=== PATIENT | male | born 1950 | race Caucasian/White ===

== ENCOUNTER 2018-05-05 20:17 | Emergency (ER) | payer MEDICARE, OTHER ==
--- NOTE | 2018-05-05 20:45 | ERPHSYRPT ---
- History of Present Illness Time Seen by Provider: 05/05/18 20:40 Historian: patient Exam Limitations: no limitations ("box open dictation box) Patient Subjective Stated Complaint: Chest pain Triage Nursing Assessment: Patient ambulated back into ER and transferred self on bed. Patient A+O X 3. Patient was sitting down and started feeling short of breath and then started having chest discomfort around 1600. Patient hadn't ate anything at this time. Patient denies pain. Patient states his chest is tight and has pressure. no nitro or asa taken. Physician History: The patient is a 67-year-old male with his complaining of a sudden onset of left upper abdominal pain and left sided lower chest pain since 4:30 this afternoon or 4 hours ago. He was sitting up resting when he had this tightness in his chest and abdomen there was kind of generalized pain. He thought he was slightly short of breath. He denies nausea or sweating. He has had similar issues before that were resolved with a GI cocktail, although he says this is slightly different today. He had a cardiac catheterization 2-3 years ago that he states was normal. He denies fever or chills. He denies cough. His past medical history is significant for GERD and hypertension. He quit smoking 15 years ago. Timing/Duration: today, hour(s) (4), sudden, improved Activities at Onset: none Quality: tightness Location: substernal Chest Pain Radiation: neck, arm Severity of Pain-Max: moderate Severity of Pain-Current: mild Modifying Factors: Improves With: nothing Associated Symptoms: abdominal pain, shortness of breath, No nausea, No vomiting , No hurts to breathe Prior Chest Pain/Cardiac Workup: cardiac cath (clear) Nitro Today/Relief: 0.4 mg x 1, provided by ED Aspirin Treatment Today: 81 mg x 4, provided by ED Allergies/Adverse Reactions: codeine [Codeine] Allergy (Verified 05/05/18 20:40) Home Medications: Amlodipine Besylate 2.5 mg PO DAILY 01/07/16 [History] Clidinium/Chlordiazepoxide [Librax] 1 cap PO QID 01/07/16 [History] Nebivolol HCl [Bystolic] 10 mg PO HS 01/07/16 [History] Ranitidine HCl [Zantac 75] 75 mg PO DAILY 05/05/18 [History] Hx Tetanus, Diphtheria Vaccination/Date Given: Yes Hx Influenza Vaccination/Date Given: Yes Hx Pneumococcal Vaccination/Date Given: No Immunizations Up to Date: Yes - Review of Systems Constitutional: No Fever, No Chills Eyes: No Symptoms Ears, Nose, & Throat: No Symptoms Respiratory: Dyspnea Cardiac: Chest Pain Abdominal/Gastrointestinal: Abdominal Pain Genitourinary Symptoms: No Dysuria Musculoskeletal: No Back Pain, No Neck Pain Skin: No Rash Neurological: No Dizziness, No Focal Weakness, No Sensory Changes Psychological: No Symptoms Endocrine: No Symptoms Hematologic/Lymphatic: No Symptoms Immunological/Allergic: No Symptoms All Other Systems: Reviewed and Negative - Past Medical History Pertinent Past Medical History: Yes Cardiac History: Hypertension Respiratory History: COPD GI Medical History: GERD - Past Surgical History Past Surgical History: Yes Cardiac: Cardiac Catheterization Musculoskeletal: Orthopedic Surgery Other Surgical History: TOTAL KNEE,HERNIA REPAIR X 2, Knee clean out - Social History Smoking Status: Former smoker Exposure to second hand smoke: Yes Drug Use: none Patient Lives Alone: No - Nursing Vital Signs Nursing Vital Signs: Initial Vital Signs Temperature 98.4 F 05/05/18 20:18 Pulse Rate 69 05/05/18 20:18 Respiratory Rate 17 05/05/18 20:18 Blood Pressure 137/81 05/05/18 20:18 O2 Sat by Pulse Oximetry 97 05/05/18 20:18 Pain Scale Pain Intensity 0 - Physical Exam General Appearance: no apparent distress, alert Eye Exam: PERRL/EOMI, eyes nml inspection Ears, Nose, Throat Exam: normal ENT inspection, moist mucous membranes Neck Exam: normal inspection, non-tender, supple, full range of motion Respiratory Exam: normal breath sounds, lungs clear, No respiratory distress Cardiovascular Exam: regular rate/rhythm, normal heart sounds Gastrointestinal/Abdomen Exam: soft, No tenderness, No mass Rectal Exam: not done Back Exam: normal inspection, No CVA tenderness, No vertebral tenderness Extremity Exam: normal inspection, normal range of motion Neurologic Exam: alert, oriented x 3, cooperative, normal mood/affect, sensation nml, No motor deficits Skin Exam: normal color, warm, dry SpO2 Interpretation: normal SpO2: 97 Oxygen Delivery: Room Air - Course EKG Interpreted by Me: RATE, Sinus Rhythm, NORMAL AXIS, NORMAL INTERVALS, NORMAL QRS, NORMAL ST-T, Other (no change in EKG from 07/14/15.) - Radiology Exams Chest X-ray Interpretation: Interpreted by me, Negative Abdomen X-ray Interpretation: Interpreted by me, Negative, Other (fecal stasis) - CT Exams Chest CT Interpretation: Tele-radiologist Report (per Dr Hinds), No PE Abdomen/Pelvis CT Interpretation: Negative, Tele-radiologist Report (per Dr Hinds), Other ( diverticulosis) Ordered Tests: Active Orders 24 hr Category Date Time Status ACCUCHECK [Accucheck] STAT Care 05/05/18 20:49 Active Harnessmaker STAT Care 05/05/18 20:49 Active Clean Catch Urine Specimen STAT Care 05/05/18 20:50 Active EKG-ER Only STAT Care 05/05/18 20:49 Active IV Insertion STAT Care 05/05/18 20:49 Active Pulse Oximetry (ED) STAT Care 05/05/18 20:49 Active ABDOMEN 2 VIEW Stat Exams 05/05/18 20:50 Taken ABDOMEN AND PELVIS W CONTRAST [CT] Stat Exams 05/05/18 22:43 Taken CHEST 2 VIEWS (PA AND LAT) Stat Exams 05/05/18 22:00 Taken CHEST WITH CONTRAST [CT] Stat Exams 05/05/18 21:49 Taken CBC W DIFF Stat Lab 05/05/18 20:40 Completed CMP Stat Lab 05/05/18 20:40 Completed D-DIMER QUANTITATION Stat Lab 05/05/18 20:40 Completed LIPASE Stat Lab 05/05/18 20:40 Completed Lactic Acid Stat Lab 05/05/18 21:00 Completed NT PRO BNP Stat Lab 05/05/18 20:40 Completed TROPONIN Q3H Lab 05/05/18 20:40 Completed TROPONIN Q3H Lab 05/06/18 00:00 Ordered TROPONIN Q3H Lab 05/06/18 03:00 Ordered TROPONIN Q3H Lab 05/06/18 06:00 Ordered TROPONIN Q3H Lab 05/06/18 09:00 Ordered UA W/RFX UR CULTURE Stat Lab 05/05/18 21:00 Completed Medication Summary Discontinued Medications Generic Name Dose Route Start Last Admin Trade Name Freq PRN Reason Stop Dose Admin Al Hydrox/Mg Hydrox/Simethicone Confirm 05/05/18 21:04 Maalox Es 30 Ml Unit Dose Administered 05/05/18 21:05 Dose 30 ml .ROUTE .STK-MED ONE Aspirin 324 mg 05/05/18 20:49 05/05/18 21:12 Baby Aspirin 81 Mg Chew PO 05/05/18 20:50 324 mg STAT ONE Administration Aspirin Confirm 05/05/18 21:03 Baby Aspirin 81 Mg Chew Administered 05/05/18 21:04 Dose 324 mg .ROUTE .STK-MED ONE Lidocaine HCl Confirm 05/05/18 21:03 Xylocaine Hcl Viscous * Administered 05/05/18 21:04 Dose 15 ml .ROUTE .STK-MED ONE Magnesium Hydroxide 45 ml 05/05/18 20:50 05/05/18 21:13 Gi Cocktail 45 Ml (Maalox/Lidocaine) PO 05/05/18 20:51 45 ml STAT ONE Administration Nitroglycerin 0.4 mg 05/05/18 20:49 05/05/18 21:13 Nitrostat 0.4 Mg (Ed) SL 05/05/18 20:50 0.4 mg STAT ONE Administration Nitroglycerin Confirm 05/05/18 21:03 Nitrostat 0.4 Mg (Ed) Administered 05/05/18 21:04 Dose 0.4 mg SL .STK-MED ONE Ondansetron HCl 4 mg 05/05/18 20:49 05/05/18 21:12 Zofran 4 Mg/2 Ml Vial IV 05/05/18 20:50 4 mg STAT ONE Administration Ondansetron HCl Confirm 05/05/18 21:03 Zofran 4 Mg/2 Ml Vial Administered 05/05/18 21:04 Dose 4 mg .ROUTE .STK-MED ONE Lab/Rad Data: Laboratory Result Diagrams 05/05/18 20:40 05/05/18 20:40 Laboratory Results 05/05/18 05/05/18 05/05/18 Range/Units 21:00 21:00 20:40 WBC (4.0-10.5) K/mm3 RBC (4.1-5.6) M/mm3 Hgb (12.5-18.0) gm/dl Hct (42-50) % MCV (78-100) fl MCH (26-32) pg MCHC (32-36) g/dl RDW (11.5-14.0) % Plt Count (150-450) K/mm3 MPV (6-9.5) fl Gran % (36.0-66.0) % Eos # (Auto) (0-0.5) Absolute Lymphs (auto) (1.0-4.6) Absolute Monos (auto) (0.0-1.3) Lymphocytes % (24.0-44.0) % Monocytes % (0.0-12.0) % Eosinophils % (0.00-5.0) % Basophils % (0.0-0.4) % Absolute Granulocytes (1.4-6.9) Basophils # (0-0.4) D-Dimer (215-500) ng/mL Sodium (137-145) mmol/L Potassium (3.5-5.1) mmol/L Chloride (98-107) mmol/L Carbon Dioxide (22-30) mmol/L Anion Gap (5-15) MEQ/L BUN (9-20) mg/dL Creatinine (0.66-1.25) mg/dL Estimated GFR ML/MIN Glucose (74-106) mg/dL Lactic Acid 1.8 (0.4-2.0) Calcium (8.4-10.2) mg/dL Total Bilirubin (0.2-1.3) mg/dL AST (17-59) U/L ALT (0-50) U/L Alkaline Phosphatase (38-126) U/L Troponin I < 0.012 (0.000-0.034) ng/mL NT-Pro-B Natriuret Pep (0-900) pg/mL Serum Total Protein (6.3-8.2) g/dL Albumin (3.5-5.0) g/dL Lipase (23-300) U/L Urine Color STRAW (YELLOW) Urine Appearance CLEAR (CLEAR) Urine pH 8.0 (5-6) Ur Specific [place] 1.002 (1.005-1.025) Urine Protein NEGATIVE (Negative) Urine Ketones NEGATIVE (NEGATIVE) Urine Blood NEGATIVE (0-5) Crispin/ul Urine Nitrite NEGATIVE (NEGATIVE) Urine Bilirubin NEGATIVE (NEGATIVE) Urine Urobilinogen NEGATIVE (0-1) mg/dL Ur Leukocyte Esterase NEGATIVE (NEGATIVE) U Epithel Cells (Auto) NONE SEEN (FEW) /HPF Urine Mucus (Auto) SLIGHT (NEGATIVE) /HPF Urine Culture Reflexed NO (NO) Urine Glucose NEGATIVE (NEGATIVE) mg/dL 05/05/18 05/05/18 05/05/18 Range/Units 20:40 20:40 20:40 WBC (4.0-10.5) K/mm3 RBC (4.1-5.6) M/mm3 Hgb (12.5-18.0) gm/dl Hct (42-50) % MCV (78-100) fl MCH (26-32) pg MCHC (32-36) g/dl RDW (11.5-14.0) % Plt Count (150-450) K/mm3 MPV (6-9.5) fl Gran % (36.0-66.0) % Eos # (Auto) (0-0.5) Absolute Lymphs (auto) (1.0-4.6) Absolute Monos (auto) (0.0-1.3) Lymphocytes % (24.0-44.0) % Monocytes % (0.0-12.0) % Eosinophils % (0.00-5.0) % Basophils % (0.0-0.4) % Absolute Granulocytes (1.4-6.9) Basophils # (0-0.4) D-Dimer 684 H* (215-500) ng/mL Sodium 137 (137-145) mmol/L Potassium 4.3 (3.5-5.1) mmol/L Chloride 100 (98-107) mmol/L Carbon Dioxide 29 (22-30) mmol/L Anion Gap 11.9 (5-15) MEQ/L BUN 13 (9-20) mg/dL Creatinine 0.77 (0.66-1.25) mg/dL Estimated GFR > 60.0 ML/MIN Glucose 131 H (74-106) mg/dL Lactic Acid (0.4-2.0) Calcium 9.2 (8.4-10.2) mg/dL Total Bilirubin 1.00 (0.2-1.3) mg/dL AST 151 H (17-59) U/L ALT 133 H (0-50) U/L Alkaline Phosphatase 75 (38-126) U/L Troponin I (0.000-0.034) ng/mL NT-Pro-B Natriuret Pep 302 (0-900) pg/mL Serum Total Protein 7.7 (6.3-8.2) g/dL Albumin 4.4 (3.5-5.0) g/dL Lipase 129 (23-300) U/L Urine Color (YELLOW) Urine Appearance (CLEAR) Urine pH (5-6) Ur Specific [place] (1.005-1.025) Urine Protein (Negative) Urine Ketones (NEGATIVE) Urine Blood (0-5) Crispin/ul Urine Nitrite (NEGATIVE) Urine Bilirubin (NEGATIVE) Urine Urobilinogen (0-1) mg/dL Ur Leukocyte Esterase (NEGATIVE) U Epithel Cells (Auto) (FEW) /HPF Urine Mucus (Auto) (NEGATIVE) /HPF Urine Culture Reflexed (NO) Urine Glucose (NEGATIVE) mg/dL 05/05/18 Range/Units 20:40 WBC 5.9 (4.0-10.5) K/mm3 RBC 5.28 (4.1-5.6) M/mm3 Hgb 17.7 (12.5-18.0) gm/dl Hct 51.1 H (42-50) % MCV 96.8 (78-100) fl MCH 33.5 H (26-32) pg MCHC 34.6 (32-36) g/dl RDW 13.2 (11.5-14.0) % Plt Count 175 (150-450) K/mm3 MPV 10.6 H (6-9.5) fl Gran % 61.0 (36.0-66.0) % Eos # (Auto) 0.15 (0-0.5) Absolute Lymphs (auto) 1.08 (1.0-4.6) Absolute Monos (auto) 1.03 (0.0-1.3) Lymphocytes % 18.2 L (24.0-44.0) % Monocytes % 17.3 H (0.0-12.0) % Eosinophils % 2.5 (0.00-5.0) % Basophils % 1.0 (0.0-0.4) % Absolute Granulocytes 3.62 (1.4-6.9) Basophils # 0.06 (0-0.4) D-Dimer (215-500) ng/mL Sodium (137-145) mmol/L Potassium (3.5-5.1) mmol/L Chloride (98-107) mmol/L Carbon Dioxide (22-30) mmol/L Anion Gap (5-15) MEQ/L BUN (9-20) mg/dL Creatinine (0.66-1.25) mg/dL Estimated GFR ML/MIN Glucose (74-106) mg/dL Lactic Acid (0.4-2.0) Calcium (8.4-10.2) mg/dL Total Bilirubin (0.2-1.3) mg/dL AST (17-59) U/L ALT (0-50) U/L Alkaline Phosphatase (38-126) U/L Troponin I (0.000-0.034) ng/mL NT-Pro-B Natriuret Pep (0-900) pg/mL Serum Total Protein (6.3-8.2) g/dL Albumin (3.5-5.0) g/dL Lipase (23-300) U/L Urine Color (YELLOW) Urine Appearance (CLEAR) Urine pH (5-6) Ur Specific [place] (1.005-1.025) Urine Protein (Negative) Urine Ketones (NEGATIVE) Urine Blood (0-5) Crispin/ul Urine Nitrite (NEGATIVE) Urine Bilirubin (NEGATIVE) Urine Urobilinogen (0-1) mg/dL Ur Leukocyte Esterase (NEGATIVE) U Epithel Cells (Auto) (FEW) /HPF Urine Mucus (Auto) (NEGATIVE) /HPF Urine Culture Reflexed (NO) Urine Glucose (NEGATIVE) mg/dL - Progress Progress: improved Air Movement: good Progress Note: 05/05/18 23:49 pt felt better after GI cocktail. Blood Culture(s) Obtained: No Antibiotics given: No Counseled pt/family regarding: lab results, diagnosis, need for follow-up, rad results - Departure Time of Disposition: 23:49 Departure Disposition: Home Clinical Impression: GERD (gastroesophageal reflux disease) Condition: Stable Critical Care Time: No Referrals: JUDITH GARZA [Primary Care Provider] - Additional Instructions: The chest and abdominal discomfort today was due to gastric reflux. You were given aspirin 325 mg, nitroglycerin 0.4 mg, and GI cocktail orally in the ER. You were also given Zofran 4 mg by IV in the ER. Follow-up with your primary medical doctor in one to 2 days for further evaluation.
[2018-05-05] MEDS ORDERED: BABY ASPIRIN 81 MG CHEW PO ONE (20:49)
[2018-05-05] MEDS ORDERED: Nitrostat 0.4 MG (ED) SL ONE ×2 (20:49→21:03)
[2018-05-05] MEDS ORDERED: Zofran 4 MG/2 ML VIAL IV ONE (20:49)
[2018-05-05] MEDS ORDERED: GI COCKTAIL 45 ML (Maalox/Lidocaine) PO ONE (20:50)
[2018-05-05 20:59] LABS: Basophil (Absolute #) 0.06 (0-0.4); Eosinophil % 2.5 % (0.00-5.0); Eosinophil (Absolute #) 0.15 (0-0.5); Granulocyte Absolute (ANC) 3.62 (1.4-6.9); Hematocrit 51.1 % (42-50); Hemoglobin 17.7 gm/dl (12.5-18.0); Lymphocyte (Absolute #) 1.08 (1.0-4.6); Lymphocytes % 18.2 % (24.0-44.0); Mean Cell Volume 96.8 fl (78-100); Mean Corpuscular Hemoglobin 33.5 pg (26-32); Mean Corpuscular Hgb Concent. 34.6 g/dl (32-36); Mean Platelet Volume 10.6 fl (6-9.5); Monocyte (Absolute #) 1.03 (0.0-1.3); Monocytes % 17.3 % (0.0-12.0); Platelet Count 175 K/mm3 (150-450); Red Blood Count 5.28 M/mm3 (4.1-5.6); Red Cell Distribution Width 13.2 % (11.5-14.0); White Blood Count 5.9 K/mm3 (4.0-10.5)
[2018-05-05] MEDS ORDERED: Zofran 4 MG/2 ML VIAL ONE (21:03)
[2018-05-05] MEDS ORDERED: BABY ASPIRIN 81 MG CHEW ONE (21:03)
[2018-05-05] MEDS ORDERED: XYLOCAINE HCl Viscous ONE (21:03)
[2018-05-05] MEDS ORDERED: MAALOX ES 30 ML UNIT DOSE ONE (21:04)
[2018-05-05 21:32] LABS: ALBUMIN 4.4 g/dL (3.5-5.0); ALKALINE PHOSPHATASE 75 U/L (38-126); ANION GAP 11.9 MEQ/L (5-15); BLOOD UREA NITROGEN 13 mg/dL (9-20); CHLORIDE 100 mmol/L (98-107); Calcium 9.2 mg/dL (8.4-10.2); Carbon Dioxide 29 mmol/L (22-30); Creatinine 1 0.77 mg/dL (0.66-1.25); Glucose 131 mg/dL (74-106); NT PRO BNP 302 pg/mL (0-900); Potassium 4.3 mmol/L (3.5-5.1); SGOT/AST 151 U/L (17-59); SGPT/ALT 133 U/L (0-50); SODIUM 137 mmol/L (137-145); Total Protein 7.7 g/dL (6.3-8.2)
[2018-05-05 21:35] LABS: Appearance CLEAR (CLEAR); Bilirubin NEGATIVE (NEGATIVE); Blood NEGATIVE Ery/ul (0-5); Glucose NEGATIVE (NEGATIVE); Ketones NEGATIVE (NEGATIVE); Leukocyte Esterase NEGATIVE (NEGATIVE); Nitrite NEGATIVE (NEGATIVE); Protein,Urine Dip NEGATIVE (Negative); Specific Gravity 1.002 (1.005-1.025); Urobilinogen NEGATIVE mg/dL (0-1)
[2018-05-05 22:12] VITALS: PULSE 62
[2018-05-05 23:09] VITALS: BP 116/76
[2018-05-05 23:50] VITALS: O2SAT 97
--- NOTE | 2018-05-06 09:10 | XRAY ---
Indication: Chest pain. Elevated d-dimer. Multiple contiguous axial images obtained through the abdomen and pelvis using 100 cc Isovue 370 contrast and PE protocol. Comparison: July 15, 2015. There is good opacification of the pulmonary arteries to include the lobar and segmental branches. Again no filling defect or pulmonary embolus. Heart is not enlarged. Aorta again minimally arteriosclerotic without aneurysm/dissection. No pathologic mediastinal/hilar lymphadenopathy. Examination of the lung parenchyma again demonstrates minimal bilateral dependent atelectasis. No suspicious pulmonary mass, infiltrate, or effusion. Bony thorax intact again with mild degenerative changes throughout the spine. CT abdomen reported separately. Impression: 1. Again negative pulmonary embolus. 2. No new/acute cardiopulmonary abnormalities. Comment: Preliminary interpretation was made by [facility]. No discrepancy. CT DI 21.44
--- NOTE | 2018-05-06 09:14 | XRAY ---
Indication: Chest pain. Bloating. Multiple contiguous axial images obtained through the abdomen and pelvis using 100 cc Isovue [address] contrast in conjunction with [address] PE study of the same day. Comparison: January 07, 2016. CT chest reported separately. Noncontrasted stomach and bowel loops appear nonobstructed. Stable small descending duodenal diverticulum. Interval appendectomy. Again scattered descending and sigmoid diverticulosis. No free fluid/air. Urinary bladder demonstrates circumferential wall thickening felt to be from incomplete distention. Stable fatty liver and chunky prostate calcifications. Remaining liver, gallbladder, pancreas, spleen, adrenal glands, kidneys, ureters, and bladder appear unremarkable. There remains moderate scattered vascular calcifications. No AAA or pathologic retroperitoneal lymphadenopathy. Osseous structures intact again with mild degenerative changes throughout the spine. Stable small fatty right inguinal hernia. Impression: 1. Urinary bladder wall thickening presumed from incomplete distention. Cystitis not completely excluded in the right clinical setting. 2. Stable duodenal diverticulum, colonic diverticulosis, fatty liver, benign prostate calcifications, and fatty right inguinal hernia. 3. Remaining CT abdomen/pelvis with contrast exam is negative. Comment: Preliminary interpretation was made by [facility]. No critical discrepancy. CT DI 22.72
--- NOTE | 2018-05-06 09:14 | XRAY ---
Indication: Chest pain. Comparison: April 07, 2012. PA/lateral chest remains clear. Heart is not enlarged. Vascularity normal. Bony thorax intact again with mild osteopenia and degenerative changes. Impression: Stable nonacute chest with chronic features.
--- NOTE | 2018-05-06 09:16 | XRAY ---
Indication: Chest/upper abdomen pain. Comparison: May 11, 2007. 2 views of the abdomen again nonacute and nonobstructed. Solid organs unremarkable. Scattered vascular calcifications. Osseous structures intact with mild osteopenia and degenerative changes. Lung bases clear. Impression: Negative abdomen with chronic features.
== END 2018-05-06 00:10 | disposition home or self-care (01) ==
LOC: ED 20:17
DX: K21.9 Gastro-esophageal reflux disease without esophagitis (principal); R10.12 Left upper quadrant pain; M54.2 Cervicalgia; R06.02 Shortness of breath; Z79.899 Other long term (current) drug therapy
CPT/HCPCS: 36000; 36415; 71046; 71260; 74021; 74177; 80053; 81001; 82962; 83605; 83690; 83880; 84484; 85025; 85379; 93005; 93041; 96374; 99284; J2405; A9270-GY

== ENCOUNTER 2018-12-16 05:57 | Day surgery (SDC) | payer MEDICARE, OTHER ==
[2018-12-16] MEDS ORDERED: DIPRIVAN 200 MG/20 ML IV ONE (05:58)
[2018-12-16] MEDS ORDERED: Lactated Ringers 1,000 ML IV SCH (06:30)
[2018-12-16] MEDS ORDERED: Lactated Ringers 1,000 ML IV ONE (08:01)
[2018-12-16 08:54] VITALS: BP 141/77; PULSE 66; O2SAT 97
--- NOTE | 2018-12-16 09:04 | OP ---
SURGERY DATE/TIME: 12/16/2018 0737 PREOPERATIVE DIAGNOSES: 1) Epigastric pain. 2) Screening colon exam. POSTOPERATIVE DIAGNOSES: 1) Epigastric pain. 2) Screening colon exam. PROCEDURES: 1) Esophagogastroduodenoscopy with cold forceps biopsy of the antrum. 2) Colonoscopy with hot polypectomy snare of transverse colon polyp and sigmoid diverticulosis. SURGEON: Dr. Ryan. ANESTHESIA: Medications were given by the anesthesia department. BRIEF HISTORY: The patient is a 68 year old white male patient presenting for now for endoscopic evaluation. He reports he had gallbladder ultrasound, gallbladder HIDA scan which have been negative. He reports he has seen his customer relations specialist and feels the chest pain is likely due to GI related issues with gastroesophageal reflux disease. The patient does take Zantac with minimal relief. He was given pantoprazole but has not started this medication yet. The patient was felt the need to have endoscopic evaluation. He was appraised of the risks of the procedure including the risk of perforation, phlebitis, untoward reaction to medication, bleeding and missed lesions. The patient verbalized his understanding and desired to have the procedure performed. DESCRIPTION OF PROCEDURE: The patient was given the medications by the anesthesia department. He had continuous pulse oximetry, ECG monitoring, intermittent blood pressure monitoring and tidal CO2 monitoring during the examination. He was placed in the left lateral decubitus position. A bite block was placed and the flexible Olympus gastroscope was used to intubate the oropharynx. A view of the larynx was obtained and this was normal. The scope was easily introduced in the esophagus which was normal throughout its length. The stomach was entered where normal gastric rugal folds were seen. These distended nicely with insufflation of air. The scope was passed along the greater curvature of the stomach to the antrum. The pylorus was encountered and intubated. Duodenum inspected and found to be normal. The scope is withdrawn towards the stomach. A retroflex view was obtained of the lesser curvature, fundus and cardia regions of the stomach and these appeared to be normal. The scope was then directed towards the gastric antrum and biopsies were obtained to rule out the presence of Helicobacter pylori-type organisms. The scope was then removed from the patient. A digital rectal examination was performed and revealed normal anal sphincter tone, no masses and normal prostate. The flexible Olympus pediatric colonoscope was used to intubate the rectum. A view of the colon was developed sequentially to the cecum. Approximately mid transverse colon it was noted an approximately 2 x 1.5 cm sessile polyp which was removed using hot polypectomy snare and retrieved for pathologic evaluation. Otherwise there was noted to be moderate sigmoid diverticulosis in the sigmoid colon. No other mucosal lesions being encountered, the scope was removed from the patient who tolerated the procedure well and was sent back to OP recovery in good condition. The prep was noted to be fair to good.
== END 2018-12-16 09:05 | disposition home or self-care (01) ==
LOC: SDC 05:57
PROVIDERS: ATTEND Family Medicine
DX: Z12.11 Encounter for screening for malignant neoplasm of colon (principal); R10.13 Epigastric pain; K57.30 Diverticulosis of large intestine without perforation or abscess without bleeding; D12.3 Benign neoplasm of transverse colon; K29.70 Gastritis, unspecified, without bleeding; K21.9 Gastro-esophageal reflux disease without esophagitis; Z79.899 Other long term (current) drug therapy
CPT/HCPCS: J2704

== ENCOUNTER 2019-06-19 16:32 | Observation (INO) | payer MEDICARE, OTHER ==
[2019-06-19] MEDS ORDERED: Zofran 4 MG/2 ML VIAL IV PRN (17:49)
[2019-06-19 18:03] LABS: Hemoglobin 15.6 gm/dl (12.5-18.0); Mean Cell Volume 97.6 fl (78-100); Mean Corpuscular Hemoglobin 33.8 pg (26-32); Mean Corpuscular Hgb Concent. 34.7 g/dl (32-36); Mean Platelet Volume 10.6 fl (6-9.5); Platelet Count 167 K/mm3 (150-450); Red Blood Count 4.61 M/mm3 (4.1-5.6); Red Cell Distribution Width 12.2 % (11.5-14.0); White Blood Count 8.6 K/mm3 (4.0-10.5)
[2019-06-19 18:38] LABS: ALBUMIN 3.9 g/dL (3.5-5.0); ALKALINE PHOSPHATASE 67 U/L (38-126); ANION GAP 13.6 MEQ/L (5-15); BLOOD UREA NITROGEN 12 mg/dL (9-20); CHLORIDE 101 mmol/L (98-107); Calcium 8.9 mg/dL (8.4-10.2); Carbon Dioxide 25 mmol/L (22-30); Creatinine 1 0.71 mg/dL (0.66-1.25); Glucose 106 mg/dL (74-106); SGOT/AST 56 U/L (17-59); SGPT/ALT 40 U/L (0-50); SODIUM 136 mmol/L (137-145); Total Protein 8.1 g/dL (6.3-8.2)
[2019-06-19] MEDS: Sodium Chloride 0.9% 1000 ML 1,000 ML IV SCH ×2 (18:38→23:45)
[2019-06-19] MEDS ORDERED: BENADRYL 50 MG/ML IV PRN (20:54)
[2019-06-19] MEDS ORDERED: Levofloxacin 500 MG Tablet ONE (21:48)
[2019-06-19] MEDS: Bystolic 5 MG PO SCH (22:22)
[2019-06-19] MEDS: Levofloxacin 500 MG Tablet PO SCH (22:22)
[2019-06-19] MEDS: Flagyl 500 MG PO SCH (22:23)
[2019-06-19] MEDS: TYLENOL 325 MG PO PRN (22:28)
[2019-06-20 05:06] LABS: Hemoglobin 14.4 gm/dl (12.5-18.0); Mean Cell Volume 99.3 fl (78-100); Mean Corpuscular Hgb Concent. 34.3 g/dl (32-36); Mean Platelet Volume 10.8 fl (6-9.5); Platelet Count 153 K/mm3 (150-450); Red Blood Count 4.23 M/mm3 (4.1-5.6); Red Cell Distribution Width 12.2 % (11.5-14.0); White Blood Count 6.5 K/mm3 (4.0-10.5)
[2019-06-20 05:12] LABS: ALBUMIN 3.1 g/dL (3.5-5.0); ALKALINE PHOSPHATASE 53 U/L (38-126); ANION GAP 10.3 MEQ/L (5-15); BLOOD UREA NITROGEN 12 mg/dL (9-20); CHLORIDE 105 mmol/L (98-107); Calcium 8.3 mg/dL (8.4-10.2); Carbon Dioxide 29 mmol/L (22-30); Creatinine 1 0.68 mg/dL (0.66-1.25); Glucose 96 mg/dL (74-106); Potassium 3.8 mmol/L (3.5-5.1); SGOT/AST 35 U/L (17-59); SGPT/ALT 33 U/L (0-50); SODIUM 140 mmol/L (137-145); Total Protein 6.8 g/dL (6.3-8.2)
[2019-06-20] MEDS: Flagyl 500 MG PO SCH ×3 (06:12→21:24)
[2019-06-20] MEDS ORDERED: Pepcid 20 MG PO PRN (06:51)
[2019-06-20] MEDS ORDERED: MORPHINE SULFATE 4 MG INJ IV PRN (07:43)
[2019-06-20] MEDS ORDERED: Pepcid 20 MG PO SCH (10:00)
[2019-06-20] MEDS ORDERED: NON-FORMULARY ITEM (Amlodipine Besylate [Amlodipine Besylate] 2.5 MG) PO SCH (10:00)
[2019-06-20] MEDS: NORVASC 5 MG PO SCH (10:11)
[2019-06-20] MEDS: PROTONIX 40 MG IV IV SCH (10:14)
[2019-06-20] MEDS: Sodium Chloride 0.9% 1000 ML 1,000 ML IV SCH ×3 (10:22→21:27)
--- NOTE | 2019-06-20 10:47 | XRAY ---
Indication: Acute pancreatitis. Two-dimensional right upper quadrant abdominal sonogram performed. Comparison: June 06, 2018. Gallbladder normally distended again without gallstones, wall thickening, or pericholecystic fluid. Common bile duct measures 2.5 mm. Stable fatty echogenic liver without focal solid/cystic mass, hepatomegaly, or ascites. Pancreatic body and tail not well visualized due to overlying bowel gas. Pancreatic head sonographically unremarkable. Right kidney measures 12 cm in length and appears sonographically normal. Impression: 1. Pancreatic body and tail not well evaluated. 2. Stable fatty echogenic liver. 3. Remaining right upper quadrant sonogram is negative.
--- NOTE | 2019-06-20 11:04 | PCM.NOTE ---
Date and Time: 06/20/19 1101 Subjective Assessment: Pt. feeling some better today, has had ultrasound this am. Pt. is now hungry, diet has been added of clear liquids and he is tolerating this well - Review of Systems Constitutional: Night Sweats Ears, Nose, & Throat: No Symptoms Respiratory: No Cough, No Short Of Breath Cardiac: No Chest Pain, No Edema, No Syncope Abdominal/Gastrointestinal: Nausea Genitourinary Symptoms: No Dysuria Skin: No Rash Neurological: Headache Objective Exam General Appearance: no apparent distress Neurologic Exam: alert Neck Exam: normal inspection, non-tender, supple, full range of motion Respiratory Exam: normal breath sounds, lungs clear, No respiratory distress Cardiovascular Exam: regular rate/rhythm, normal heart sounds Gastrointestinal/Abdomen Exam: soft, No tenderness, No mass Extremity Exam: normal inspection, normal range of motion OBJECTIVE DATA Vital Signs: Vital Signs - 24 hr Temp Pulse Resp BP Pulse Ox 06/20/19 07:08 97.8 F 65 20 119/57 97 06/20/19 04:00 99.1 F 67 20 118/65 95 06/20/19 00:00 98.8 F 68 16 109/63 94 L 06/19/19 19:36 97.6 F 72 18 118/65 93 L 06/19/19 17:51 98.8 F 77 18 134/73 92 L 06/19/19 17:44 98.8 F 77 16 134/73 92 L 06/19/19 17:22 98.8 F 777 H 18 134/73 92 L Pain Assessment - Last Documented Pain Intensity 0 Pain Scale Used 0-10 Pain Scale Intake and Output: Intake & Output 06/17/19 06/18/19 06/19/19 06/20/19 11:59 11:59 11:59 11:59 Intake Total 1876 Output Total 850 Balance 1026 Weight 102.2 kg Lab Results: Lab Results-Last 24 Hours 06/19/19 06/19/19 06/20/19 Range/Units 17:55 17:55 04:45 WBC 8.6 6.5 (4.0-10.5) K/mm3 RBC 4.61 4.23 (4.1-5.6) M/mm3 Hgb 15.6 14.4 (12.5-18.0) gm/dl Hct 45.0 42.0 (42-50) % MCV 97.6 99.3 (78-100) fl MCH 33.8 H 34.0 H (26-32) pg MCHC 34.7 34.3 (32-36) g/dl RDW 12.2 12.2 (11.5-14.0) % Plt Count 167 153 (150-450) K/mm3 MPV 10.6 H 10.8 H (6-9.5) fl Sodium 136 L (137-145) mmol/L Potassium 4.0 (3.5-5.1) mmol/L Chloride 101 (98-107) mmol/L Carbon Dioxide 25 (22-30) mmol/L Anion Gap 13.6 (5-15) MEQ/L BUN 12 (9-20) mg/dL Creatinine 0.71 (0.66-1.25) mg/dL Estimated GFR > 60.0 ML/MIN Glucose 106 (74-106) mg/dL Calcium 8.9 (8.4-10.2) mg/dL Total Bilirubin 1.10 (0.2-1.3) mg/dL AST 56 (17-59) U/L ALT 40 (0-50) U/L Alkaline Phosphatase 67 (38-126) U/L Serum Total Protein 8.1 (6.3-8.2) g/dL Albumin 3.9 (3.5-5.0) g/dL 06/20/19 Range/Units 04:45 WBC (4.0-10.5) K/mm3 RBC (4.1-5.6) M/mm3 Hgb (12.5-18.0) gm/dl Hct (42-50) % MCV (78-100) fl MCH (26-32) pg MCHC (32-36) g/dl RDW (11.5-14.0) % Plt Count (150-450) K/mm3 MPV (6-9.5) fl Sodium 140 (137-145) mmol/L Potassium 3.8 (3.5-5.1) mmol/L Chloride 105 (98-107) mmol/L Carbon Dioxide 29 (22-30) mmol/L Anion Gap 10.3 (5-15) MEQ/L BUN 12 (9-20) mg/dL Creatinine 0.68 (0.66-1.25) mg/dL Estimated GFR > 60.0 ML/MIN Glucose 96 (74-106) mg/dL Calcium 8.3 L (8.4-10.2) mg/dL Total Bilirubin 1.00 (0.2-1.3) mg/dL AST 35 (17-59) U/L ALT 33 (0-50) U/L Alkaline Phosphatase 53 (38-126) U/L Serum Total Protein 6.8 (6.3-8.2) g/dL Albumin 3.1 L (3.5-5.0) g/dL Radiology Exams: Radiology Procedures Category Date Time Status LIVER OR SPLEEN [US] Routine Exams 06/20/19 08:00 Completed Assessment/Plan (1) Pancreatitis Current Visit: Yes Status: Acute Assessment & Plan: Clear liquids today, recheck am labs tomorrow and advance diet if able Code(s): K85.90 - ACUTE PANCREATITIS WITHOUT NECROSIS OR INFECTION, UNSP (2) Diverticulitis large intestine Current Visit: Yes Status: Acute Assessment & Plan: continue antibiotics Code(s): K57.32 - DVTRCLI OF LG INT W/O PERFORATION OR ABSCESS W/O BLEEDING
[2019-06-20] MEDS: Levofloxacin 500 MG Tablet PO SCH (21:24)
[2019-06-20] MEDS: Bystolic 5 MG PO SCH (21:24)
[2019-06-20] MEDS: TYLENOL 325 MG PO PRN (21:35)
[2019-06-21] MEDS: Sodium Chloride 0.9% 1000 ML 1,000 ML IV SCH ×2 (01:47→06:36)
[2019-06-21 05:58] LABS: AMYLASE 104 U/L (30-110); LIPASE 259 U/L (23-300)
[2019-06-21 06:31] LABS: Hematocrit 42.4 % (42-50); Hemoglobin 14.2 gm/dl (12.5-18.0); Mean Cell Volume 100.5 fl (78-100); Mean Corpuscular Hemoglobin 33.6 pg (26-32); Mean Corpuscular Hgb Concent. 33.5 g/dl (32-36); Mean Platelet Volume 11.8 fl (6-9.5); Platelet Count 151 K/mm3 (150-450); Red Blood Count 4.22 M/mm3 (4.1-5.6); Red Cell Distribution Width 12.3 % (11.5-14.0); White Blood Count 4.8 K/mm3 (4.0-10.5)
[2019-06-21] MEDS: Flagyl 500 MG PO SCH ×2 (06:36→14:33)
[2019-06-21 06:37] LABS: Lymphocytes 20 % (24-44); Monocyte 6 % (0.0-12.0); Neutrophils 74 % (36.-66.); Total Cells Counted 100
[2019-06-21 06:38] LABS: Platelet Estimate NORMAL (NORMAL)
--- NOTE | 2019-06-21 08:49 | PCM.NOTE ---
Date and Time: 06/21/19842 Subjective Assessment: 68 yr old male seen and examined this am. Patient reports that he is doing better since admission. Patient reports that he still has abdominal distention. Patient has been tolerating a regular diet. Patient reports a few episodes of diarrhea yesterday. Patient is unsure if he has been running a fever since admission. - Review of Systems Constitutional: Night Sweats, No Fever Respiratory: No Short Of Breath Cardiac: No Chest Pain, No Edema Abdominal/Gastrointestinal: Diarrhea, Other (Abdominal distention) Musculoskeletal: No Back Pain Skin: Other (Pruritic rash on back) Psychological: Alcohol Abuse (Patient drinks at least 12 beers 3x a week. ) Objective Exam General Appearance: no apparent distress, No anxiety Neurologic Exam: alert, oriented x 3, cooperative, No motor deficits, No depressed mood/affect Skin Exam: normal color, other (Folliculitis type rash diffusely over back) Eye Exam: eyes nml inspection, No scleral icterus Ears, Nose, Throat Exam: No dry mucous membranes Neck Exam: normal inspection Respiratory Exam: normal breath sounds, lungs clear, No chest tenderness, No respiratory distress, No diminished breath sounds, No crackles/rales Cardiovascular Exam: regular rate/rhythm, normal heart sounds, No murmur, No friction rub, No gallop Gastrointestinal/Abdomen Exam: soft, normal bowel sounds, distention, No tenderness, No guarding, No rebound Extremity Exam: normal inspection Back Exam: rash OBJECTIVE DATA Vital Signs: Vital Signs - 24 hr Temp Pulse Resp BP Pulse Ox 06/21/19 08:00 98.3 F 69 17 135/69 94 L 06/21/19 04:00 98.4 F 63 20 120/63 95 06/21/19 00:00 98.0 F 68 20 123/70 95 06/20/19 20:00 98.2 F 71 20 123/65 94 L 06/20/19 16:12 97.5 F 95 H 20 110/56 95 06/20/19 11:55 99.1 F 70 18 122/61 94 L Pain Assessment - Last Documented Pain Intensity 0 Pain Scale Used [facility] Intake and Output: Intake & Output 06/18/19 06/19/19 06/20/19 06/21/19 11:59 11:59 11:59 11:59 Intake Total 1876 3300 Output Total 850 1900 Balance 1026 1400 Weight 102.2 kg Lab Results: Lab Results-Last 24 Hours 06/21/19 06/21/19 Range/Units 05:00 05:40 WBC 4.8 (4.0-10.5) K/mm3 RBC 4.22 (4.1-5.6) M/mm3 Hgb 14.2 (12.5-18.0) gm/dl Hct 42.4 (42-50) % MCV 100.5 H (78-100) fl MCH 33.6 H (26-32) pg MCHC 33.5 (32-36) g/dl RDW 12.3 (11.5-14.0) % Plt Count 151 (150-450) K/mm3 MPV 11.8 H (6-9.5) fl Segmented Neutrophils 74 H (36.-66.) % Lymphocytes (Manual) 20 L (24-44) % Monocytes (Manual) 6 (0.0-12.0) % Platelet Estimate NORMAL (NORMAL) RBC Morphology NORMAL Amylase 104 (30-110) U/L Lipase 259 (23-300) U/L Radiology Exams: Radiology Procedures Category Date Time Status LIVER OR SPLEEN [US] Routine Exams 06/20/19 08:00 Completed Assessment/Plan (1) Pancreatitis Current Visit: Yes Status: Acute Assessment & Plan: GB US was neg for stones. Patient will still need to have HIDA scan. Patient's amylase and lipase are trending down. Patient has significant alcohol use history. Will get CT abdomen and pelvis to evaluate for upper abdominal distention. Patient was progressing on his diet but will need to be NPO for CT exam. Will continue to monitor for abdominal pain. Patient has allergy to codeine. Patient can have fentanyl for pain if necessary. Code(s): K85.90 - ACUTE PANCREATITIS WITHOUT NECROSIS OR INFECTION, UNSP (2) Diverticulitis large intestine Current Visit: Yes Status: Acute Assessment & Plan: Will continue treatment for suspected diverticulitis. Patient will discharge home on antibiotics. Patient symptoms appear to be improving. Patient has been afebrile and has started to tolerate diet advancement. Code(s): K57.32 - DVTRCLI OF LG INT W/O PERFORATION OR ABSCESS W/O BLEEDING (3) Rash Current Visit: Yes Status: Acute Assessment & Plan: Will start on triamcinolone cream. Patient can have PRN benadryl as needed. Code(s): R21 - RASH AND OTHER NONSPECIFIC SKIN ERUPTION (4) GERD (gastroesophageal reflux disease) Current Visit: No Status: Acute Assessment & Plan: Patient is on protonix and famotidine. Will continue this therapy at home as well. Code(s): K21.9 - GASTRO-ESOPHAGEAL REFLUX DISEASE WITHOUT ESOPHAGITIS
[2019-06-21] MEDS ORDERED: KENALOG 0.1% CREAM 15 GM TP SCH (09:00)
[2019-06-21] MEDS: NORVASC 5 MG PO SCH (10:58)
[2019-06-21] MEDS: PROTONIX 40 MG IV IV SCH (10:58)
[2019-06-21 11:47] VITALS: BP 133/63; PULSE 63; O2SAT 95
--- NOTE | 2019-06-21 11:50 | XRAY ---
Indication: Abdominal distention and pain. Multiple contiguous axial images obtained through the abdomen and pelvis using 80 cc Isovue 370 contrast only. Comparison: May 05, 2018. Lung bases again demonstrates bibasilar dependent atelectasis. New tiny bilateral effusions and tiny right posterior gutter calcified granuloma. Heart is not enlarged. Noncontrasted stomach and bowel loops again nonobstructed. Stable small descending duodenal diverticulum, appendectomy, and descending/sigmoid colonic diverticulosis. Mid abdomen demonstrates new small subcentimeter mesenteric nodes with stranding favoring mesenteric adenitis. No free fluid/air. Stable mild fatty liver and chunky prostate calcifications. Remaining liver, gallbladder, pancreas, spleen, adrenal glands, kidneys, ureters, and bladder appear unremarkable. Stable moderate scattered vascular calcifications. No AAA or pathologic retroperitoneal lymphadenopathy. Osseous structures again demonstrates mild/moderate degenerative changes throughout the thoracolumbar spine. Stable small fatty right inguinal hernia. Impression: 1. New small mid abdomen mesenteric nodes with stranding favoring mesenteric adenitis. 2. New tiny bibasilar effusions without cardiomegaly. 3. Stable duodenal diverticulum, colonic diverticulosis, fatty liver, benign prostate calcifications, and fatty right inguinal hernia. CT DI 19.38
--- NOTE | 2019-06-25 20:24 | PCM.DS ---
Discharge Summary Date of Admission: 06/19/19 17:15 Admitting Physician: MIGUELINA MEDRANO MD Primary Care Provider: RAVINDER ESQUEDA Allergies Allergies codeine [Codeine] Allergy (Intermediate, Verified 12/16/18 06:31) Itching Hospital Summary - Vitals & Intake/Output Vital Signs: Vital Signs Temperature 98.2 F 06/21/19 11:47 Pulse Rate 63 06/21/19 11:47 Respiratory Rate 17 06/21/19 11:47 Blood Pressure 133/63 06/21/19 11:47 O2 Sat by Pulse Oximetry 95 06/21/19 11:47 - Lab Result Diagrams: 06/21/19 05:00 06/20/19 04:45 Final Diagnosis/Problem List - Final Discharge Diagnosis/Problem (1) Pancreatitis Status: Acute Code(s): K85.90 - ACUTE PANCREATITIS WITHOUT NECROSIS OR INFECTION, UNSP (2) Diverticulitis large intestine Status: Acute Code(s): K57.32 - DVTRCLI OF LG INT W/O PERFORATION OR ABSCESS W /O BLEEDING (3) Rash Status: Acute Code(s): R21 - RASH AND OTHER NONSPECIFIC SKIN ERUPTION (4) GERD (gastroesophageal reflux disease) Status: Acute Code(s): K21.9 - GASTRO-ESOPHAGEAL REFLUX DISEASE WITHOUT ESOPHAGITIS - Discharge Disposition: Home, Self-Care Condition: Stable Prescriptions: Continue Clidinium/Chlordiazepoxide [Librax] 1 cap PO DAILY Amlodipine Besylate 2.5 mg PO DAILY Nebivolol HCl [Bystolic] 10 mg PO HS Metronidazole 500 mg [Flagyl 500 MG] 500 mg PO Q8H Ciprofloxacin [Cipro 500 MG] 500 mg PO BID Famotidine [Pepcid] 40 mg PO DAILY PRN PRN PRN Reason: Indigestion PANTOPRAZOLE 40 mg Tablet [Protonix 40MG Tablet] 40 mg PO QAM Instructions: Pancreatitis (DC), Price Diet Additional Instructions: Come in for outpatient [facility] 06/22 @ 1100am please arrive 15min early and 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 Stay nothing by mouth after midnight tonight and no narcotic medication after 11pm. Follow up with: MIGUELINA MEDRANO MD [ACTIVE STAFF] - 06/28/19 9:00 am Forms: Discharge Instructions
== END 2019-06-21 15:40 | disposition home or self-care (01) ==
LOC: MED SURG 17:15
PROVIDERS: ADMIT Family Medicine; ATTEND Family Medicine
DX: K85.90 Acute pancreatitis without necrosis or infection, unspecified (principal); K57.32 Diverticulitis of large intestine without perforation or abscess without bleeding; R21 Rash and other nonspecific skin eruption; F10.10 Alcohol abuse, uncomplicated; K21.9 Gastro-esophageal reflux disease without esophagitis
CPT/HCPCS: 36415; 74177; 76705; 80053; 81003; 82150; 83690; 85025; 85027; G0378; A9270-GY

== ENCOUNTER 2019-09-28 16:04 | Emergency (ER) | payer MEDICARE, OTHER ==
[2019-09-28] MEDS ORDERED: BABY ASPIRIN 81 MG CHEW PO ONE (16:37)
[2019-09-28] MEDS ORDERED: DUONEB 0.5-3 MG/3 ml Neb IH ONE ×2 (16:38→16:47)
[2019-09-28] MEDS ORDERED: solu-MEDROL 125 MG IV ONE (16:38)
[2019-09-28 16:59] LABS: Absolute Neutrophil Ct (ANC) 3.04 (1.4-6.9); BASOPHIL % 0.6 % (0.0-0.4); Basophil (Absolute #) 0.03 (0-0.4); Eosinophil % 4.1 % (0.00-5.0); Hematocrit 47.3 % (42-50); Lymphocyte (Absolute #) 1.09 (1.0-4.6); Lymphocytes % 22.3 % (24.0-44.0); Mean Cell Volume 97.1 fl (78-100); Mean Corpuscular Hemoglobin 32.9 pg (26-32); Mean Corpuscular Hgb Concent. 33.8 g/dl (32-36); Mean Platelet Volume 10.7 fl (7.5-11.0); Monocyte (Absolute #) 0.53 (0.0-1.3); Monocytes % 10.8 % (0.0-12.0); Neutrophil % 62.2 % (36.0-66.0); Platelet Count 166 K/mm3 (150-450); Red Blood Count 4.87 M/mm3 (4.1-5.6); Red Cell Distribution Width 13.2 % (11.5-14.0); White Blood Count 4.9 K/mm3 (4.0-10.5)
[2019-09-28] MEDS ORDERED: BABY ASPIRIN 81 MG CHEW ONE (17:04)
[2019-09-28] MEDS ORDERED: solu-MEDROL 125 MG ONE (17:04)
[2019-09-28 17:16] VITALS: O2SAT 96
--- NOTE | 2019-09-28 17:27 | XRAY ---
Exam: Two-view chest from 09/28/2019. Comparison: Two-view chest from 05/05/2018. Indication: Shortness of breath, chest tightness, cough for almost a week, former smoker. Findings: Upright PA and lateral chest films were obtained. The transverse heart size is normal. The judie and mediastinal structures appear unremarkable. The lungs are well expanded. No air space infiltrates, vascular congestion, or pleural fluid is seen. No pneumothorax is seen. EKG leads are seen in place. Moderate degenerative changes are seen within the mid and lower thoracic spine representing no change. No acute osseous process is seen. Impression: 1. No infiltrates to suggest focal pneumonia or other acute cardiopulmonary disease is seen. The findings appear similar to 05/05/2018.
[2019-09-28 17:59] LABS: ALBUMIN 4.1 g/dL (3.5-5.0); ALKALINE PHOSPHATASE 112 U/L (38-126); ANION GAP 12.2 MEQ/L (5-15); BLOOD UREA NITROGEN 17 mg/dL (9-20); CHLORIDE 106 mmol/L (98-107); Calcium 8.8 mg/dL (8.4-10.2); Carbon Dioxide 25 mmol/L (22-30); Creatinine 1 0.78 mg/dL (0.66-1.25); Glucose 148 mg/dL (74-106); NT PRO BNP 337 pg/mL (0-900); Potassium 3.7 mmol/L (3.5-5.1); SGOT/AST 42 U/L (17-59); SGPT/ALT 39 U/L (0-50); SODIUM 139 mmol/L (137-145); Total Protein 7.6 g/dL (6.3-8.2)
--- NOTE | 2019-09-28 18:14 | ERPHSYRPT ---
- History of Present Illness Time Seen by Provider: 09/28/19 16:19 Source: patient Exam Limitations: no limitations Patient Subjective Stated Complaint: pt here for cough, no fever, states was coughing and then chest got tight. pt denies any chest pain, Triage Nursing Assessment: pt alert, walked in, resp easy, skin w/d/p. chest clear, and soft Physician History: 69 years old male in the ER with chief complaint of nonproductive cough for the last 3 days which is progressively worsening. Patient is having coughing bouts and after that gets some chest tightness and pressure which lasts for a few minutes to an hour and improves. This happened almost 2 hours prior to arrival. Patient is back to normal. He denies any shortness of breath. Patient report today he noticed having some wheezing when he was trying to take a deep breath. He denies any shortness of breath otherwise, chest pain or dyspnea on exertion. Denies any fever or chills but generalized feeling of malaise. Patient reports symptoms started as a upper respiratory and gradually got worse. Timing/Duration: day(s) (3), intermittent, resolved prior to arrival, gradual onset Cough Quality/Degree: moderate, dry cough Possible Cause: no prior episodes Modifying Factors: Improves With: coughing Associated Symptoms: chest pain/soreness, cough, muscle aches, nasal congestion , sinus infection, No fever, No chills Allergies/Adverse Reactions: codeine [Codeine] Allergy (Intermediate, Verified 09/28/19 16:33) Itching Home Medications: Amlodipine Besylate 2.5 mg PO DAILY 01/07/16 [History] Clidinium/Chlordiazepoxide [Librax] 1 cap PO DAILY 01/07/16 [History] Nebivolol HCl [Bystolic] 10 mg PO HS 01/07/16 [History] Famotidine [Pepcid] 40 mg PO DAILY PRN PRN 06/19/19 [History] PANTOPRAZOLE 40 mg Tablet [Protonix 40MG Tablet] 40 mg PO QAM 06/19/19 [ History] Hx Tetanus, Diphtheria Vaccination/Date Given: Yes Hx Influenza Vaccination/Date Given: Yes Hx Pneumococcal Vaccination/Date Given: Yes Immunizations Up to Date: Yes - Review of Systems Constitutional: No Symptoms Ears, Nose, & Throat: Nose Discharge Respiratory: Cough Cardiac: No Symptoms Abdominal/Gastrointestinal: No Symptoms Genitourinary Symptoms: No Symptoms Musculoskeletal: Myalgias Skin: No Symptoms Psychological: No Symptoms Endocrine: No Symptoms Hematologic/Lymphatic: No Symptoms Immunological/Allergic: No Symptoms - Past Medical History Pertinent Past Medical History: Yes Neurological History: No Pertinent History ENT History: Cataracts Cardiac History: Hypertension Respiratory History: COPD Endocrine Medical History: No Pertinent History Musculoskeletal History: Arthritis GI Medical History: GERD History: No Pertinent History Psycho-Social History: No Pertinent History Male Reproductive Disorders: No Pertinent History - Past Surgical History Past Surgical History: Yes Neuro Surgical History: No Pertinent History Cardiac: Cardiac Catheterization Respiratory: No Pertinent History Gastrointestinal: Appendectomy Genitourinary: No Pertinent History Musculoskeletal: Orthopedic Surgery Male Surgical History: No Pertinent History Other Surgical History: TOTAL KNEE LEFT,HERNIA REPAIR X 2, Knee clean out - Social History Smoking Status: Former smoker Exposure to second hand smoke: No Drug Use: none Patient Lives Alone: No - Nursing Vital Signs Nursing Vital Signs: Initial Vital Signs Temperature 98.2 F 09/28/19 16:26 Pulse Rate 74 09/28/19 16:26 Respiratory Rate 18 09/28/19 16:26 Blood Pressure 130/75 09/28/19 16:26 O2 Sat by Pulse Oximetry 97 09/28/19 16:26 Pain Scale Pain Intensity 0 - Physical Exam General Appearance: no apparent distress Eye Exam: PERRL/EOMI, eyes nml inspection Ears, Nose, Throat Exam: TMs normal, pharyngeal erythema Neck Exam: normal inspection, non-tender, supple, full range of motion Respiratory Exam: normal breath sounds, wheezing Cardiovascular Exam: regular rate/rhythm, normal heart sounds, normal peripheral pulses Gastrointestinal/Abdomen Exam: soft, normal bowel sounds, No tenderness Back Exam: normal inspection Extremity Exam: normal inspection, normal range of motion Neurologic Exam: alert, oriented x 3, cooperative Skin Exam: normal color SpO2 Interpretation: normal SpO2: 96 O2 Delivery: Room Air - Course Nursing assessment & vital signs reviewed: Yes EKG Interpreted by Me: RATE (61), NORMAL AXIS, NORMAL INTERVALS, NORMAL QRS Ordered Tests: Active Orders 24 hr Category Date Time Status EKG-ER Only STAT Care 09/28/19 16:37 Active CHEST 2 VIEWS (PA AND LAT) Stat Exams 09/28/19 16:37 Completed CBC W DIFF Stat Lab 09/28/19 16:56 Completed CMP Stat Lab 09/28/19 16:56 Completed NT PRO BNP Stat Lab 09/28/19 16:56 Completed TROPONIN Q3H Lab 09/28/19 16:56 Received TROPONIN Q3H Lab 09/28/19 19:45 Ordered TROPONIN Q3H Lab 09/28/19 22:45 Ordered TROPONIN Q3H Lab 09/29/19 01:45 Ordered TROPONIN Q3H Lab 09/29/19 04:45 Ordered Peak Expiratory Flow Rate ONCE RT 09/28/19 16:57 Active Respiratory Therapy Assessment DAILY RT 09/28/19 16:57 Active Medication Summary Discontinued Medications Generic Name Dose Route Start Last Admin Trade Name Freq PRN Reason Stop Dose Admin Albuterol/Ipratropium 3 ml 09/28/19 16:38 09/28/19 17:10 Duoneb 0.5-3 Mg/3 Ml Neb IH 09/28/19 16:39 3 ml STAT ONE Administration Albuterol/Ipratropium Confirm 09/28/19 16:47 Duoneb 0.5-3 Mg/3 Ml Neb Administered 09/28/19 16:48 Dose 3 ml IH .STK-MED ONE Aspirin 324 mg 09/28/19 16:37 09/28/19 17:06 Baby Aspirin 81 Mg Chew PO 09/28/19 16:38 324 mg STAT ONE Administration Aspirin Confirm 09/28/19 17:04 Baby Aspirin 81 Mg Chew Administered 09/28/19 17:05 Dose 324 mg .ROUTE .STK-MED ONE Methylprednisolone Sodium Succinate 125 mg 09/28/19 16:38 09/28/19 17:06 Solu-Medrol 125 Mg IV 09/28/19 16:39 125 mg STAT ONE Administration Methylprednisolone Sodium Succinate Confirm 09/28/19 17:04 Solu-Medrol 125 Mg Administered 09/28/19 17:05 Dose 125 mg .ROUTE .STK-MED ONE Lab/Rad Data: Laboratory Result Diagrams 09/28/19 16:56 09/28/19 16:56 Laboratory Results 09/28/19 09/28/19 09/28/19 Range/Units 16:56 16:56 16:56 WBC 4.9 (4.0-10.5) K/mm3 RBC 4.87 (4.1-5.6) M/mm3 Hgb 16.0 (12.5-18.0) gm/dl Hct 47.3 (42-50) % MCV 97.1 (78-100) fl MCH 32.9 H (26-32) pg MCHC 33.8 (32-36) g/dl RDW 13.2 (11.5-14.0) % Plt Count 166 (150-450) K/mm3 MPV 10.7 (7.5-11.0) fl Gran % 62.2 (36.0-66.0) % Eos # (Auto) 0.20 (0-0.5) Absolute Lymphs (auto) 1.09 (1.0-4.6) Absolute Monos (auto) 0.53 (0.0-1.3) Lymphocytes % 22.3 L (24.0-44.0) % Monocytes % 10.8 (0.0-12.0) % Eosinophils % 4.1 (0.00-5.0) % Basophils % 0.6 (0.0-0.4) % Absolute Granulocytes 3.04 (1.4-6.9) Basophils # 0.03 (0-0.4) Sodium 139 (137-145) mmol/L Potassium 3.7 (3.5-5.1) mmol/L Chloride 106 (98-107) mmol/L Carbon Dioxide 25 (22-30) mmol/L Anion Gap 12.2 (5-15) MEQ/L BUN 17 (9-20) mg/dL Creatinine 0.78 (0.66-1.25) mg/dL Estimated GFR > 60.0 ML/MIN Glucose 148 H (74-106) mg/dL Calcium 8.8 (8.4-10.2) mg/dL Total Bilirubin 0.50 (0.2-1.3) mg/dL AST 42 (17-59) U/L ALT 39 (0-50) U/L Alkaline Phosphatase 112 (38-126) U/L Troponin I < 0.012 (0.000-0.034) ng/mL NT-Pro-B Natriuret Pep 337 (0-900) pg/mL Serum Total Protein 7.6 (6.3-8.2) g/dL Albumin 4.1 (3.5-5.0) g/dL - Progress Progress: improved, re-examined Air Movement: good Progress Note: 69 years old is evaluated for URI symptoms with cough with recent worsening and chest tightness. Symptoms are more suggestive of infectious etiology. No pneumonia noticeable on chest x-ray, lungs has few wheezing which are clear after breathing treatment. EKG showed sinus rhythm with no acute ST or T wave changes. Negative troponins. This is been going on for the last 3 days, one negative troponin rule it out. Also symptoms are not very typical of cardiac. Patient does have history of anxiety and part of symptoms is because of that as well. I have given a dose of steroid and here and will continue to go home as well along with Jeancarlos Andrews. Discussed signs symptoms of worsening needing return to ER which he seems understanding. Stable for discharge. 09/28/19 18:28 Blood Culture(s) Obtained: No Antibiotics given: No Counseled pt/family regarding: lab results, diagnosis, need for follow-up, rad results - Departure Departure Disposition: Home Clinical Impression: Viral URI with cough Condition: Stable Critical Care Time: No Referrals: MIGUELINA MEDRANO MD [Primary Care Provider] - Instructions: Cough, Adult (DC) Additional Instructions: Follow-up with primary care for reevaluation in 2 to 3 days. Return to ER for worsening. Prescriptions: Albuterol 8 gm Mdi Hfa [Ventolin Hfa MDI] 8 gm IH Q4H #1 hfa.aer.ad Benzonatate [Tessalon Perle] 200 mg PO TID #12 capsule Prednisone 50 mg PO DAILY #5 tablet
[2019-09-28 18:27] VITALS: BP 122/67; PULSE 74
== END 2019-09-28 18:36 | disposition home or self-care (01) ==
LOC: ED 16:04
DX: J06.9 Acute upper respiratory infection, unspecified (principal); R05 Cough; Z79.899 Other long term (current) drug therapy
CPT/HCPCS: 36000; 36415; 71046; 80053; 83880; 84484; 85025; 93005; 94150; 94640; 96374; 99284; J2930; A9270-GY

== ENCOUNTER 2019-11-27 09:12 | Observation (INO) | payer MEDICARE, OTHER ==
[2019-11-27 09:53] LABS: Hematocrit 50.3 % (42-50); Hemoglobin 17.5 gm/dl (12.5-18.0); Mean Corpuscular Hemoglobin 32.7 pg (26-32); Mean Corpuscular Hgb Concent. 34.8 g/dl (32-36); Mean Platelet Volume 10.7 fl (7.5-11.0); Platelet Count 195 K/mm3 (150-450); Red Blood Count 5.35 M/mm3 (4.1-5.6); Red Cell Distribution Width 12.7 % (11.5-14.0); White Blood Count 7.8 K/mm3 (4.0-10.5)
[2019-11-27] MEDS ORDERED: Zofran 4 MG/2 ML VIAL IV PRN (10:02)
[2019-11-27] MEDS ORDERED: TYLENOL 325 MG PO PRN (10:03)
[2019-11-27 10:36] LABS: ALBUMIN 4.5 g/dL (3.5-5.0); ALKALINE PHOSPHATASE 78 U/L (38-126); ANION GAP 12.3 MEQ/L (5-15); BLOOD UREA NITROGEN 11 mg/dL (9-20); CHLORIDE 104 mmol/L (98-107); Calcium 9.5 mg/dL (8.4-10.2); Carbon Dioxide 27 mmol/L (22-30); Creatinine 1 0.74 mg/dL (0.66-1.25); Glucose 119 mg/dL (74-106); Potassium 3.8 mmol/L (3.5-5.1); SGOT/AST 37 U/L (17-59); SGPT/ALT 38 U/L (0-50); SODIUM 140 mmol/L (137-145); Total Protein 8.2 g/dL (6.3-8.2)
--- NOTE | 2019-11-27 10:40 | XRAY ---
Indication: Epigastric pain. Multiple contiguous axial images obtained through the abdomen and pelvis using 80 cc Isovue 370 contrast only as ordered. Comparison: June 21, 2019. Lung bases again demonstrates minimal bilateral dependent atelectasis and tiny right posterior gutter calcified granuloma. No infiltrate or effusion. Heart is not enlarged. Noncontrasted stomach and bowel loops remain nonobstructed. Stable small descending duodenal diverticulum, appendectomy, and descending/sigmoid colonic diverticulosis. No free fluid/air. Stable mild fatty liver and benign chunky prostate calcifications. Remaining liver, gallbladder, angriness, spleen, adrenal glands, kidneys, ureters, and bladder appear unremarkable. Stable moderate scattered vascular calcifications. No AAA or pathologic retroperitoneal lymphadenopathy. Osseous structures again demonstrates mild/moderate degenerative changes throughout the thoracolumbar spine. Stable small fatty right inguinal hernia. Impression: 1. Stable duodenal diverticulum, colonic diverticulosis, fatty liver, benign prostate calcifications, and small fatty right inguinal hernia. 2. Remaining CT abdomen/pelvis with contrast exam is negative.
[2019-11-27] MEDS ORDERED: NON-FORMULARY ITEM (Famotidine [Pepcid] 40 MG) PO PRN (10:51)
[2019-11-27] MEDS ORDERED: Pepcid 20 MG PO PRN (10:54)
[2019-11-27] MEDS: Sodium Chloride 0.9% 1000 ML 1,000 ML IV SCH (11:13)
[2019-11-27] MEDS: NORVASC 5 MG PO SCH (11:16)
[2019-11-27] MEDS: Protonix 40MG Tablet PO SCH (11:16)
[2019-11-27 11:50] LABS: Appearance CLEAR (CLEAR); Bilirubin NEGATIVE (NEGATIVE); Blood NEGATIVE Ery/ul (0-5); Glucose NEGATIVE (NEGATIVE); Ketones NEGATIVE (NEGATIVE); Leukocyte Esterase NEGATIVE (NEGATIVE); Nitrite NEGATIVE (NEGATIVE); Protein,Urine Dip NEGATIVE (Negative); Specific Gravity 1.053 (1.005-1.025); Urobilinogen NEGATIVE mg/dL (0-1)
[2019-11-27 12:49] LABS: Amphetamine,Urine NEGATIVE (NEGATIVE); Barbiturate,Urine NEGATIVE (NEGATIVE); Benzodiazepine,Urine NEGATIVE (NEGATIVE); Cocaine,Urine NEGATIVE (NEGATIVE); Methadone,Urine NEGATIVE (NEGATIVE); Opiate,Urine NEGATIVE (NEGATIVE); PCP,Urine NEGATIVE (NEGATIVE); THC,Urine NEGATIVE (NEGATIVE)
[2019-11-27 13:19] LABS: AMYLASE 104 U/L (30-110); LIPASE 98 U/L (23-300)
[2019-11-27] MEDS ORDERED: xanAX 0.5 MG PO ONE (17:45)
[2019-11-27] MEDS ORDERED: NON-FORMULARY ITEM (Nebivolol Hcl [Bystolic] 10 MG) PO SCH (22:00)
[2019-11-27] MEDS ORDERED: Bystolic 5 MG PO SCH (22:00)
[2019-11-27] MEDS ORDERED: ROPINIROLE HCL 0.5 MG PO SCH (22:00)
[2019-11-27] MEDS ORDERED: Requip 0.5 MG PO SCH (22:00)
[2019-11-28] MEDS: Sodium Chloride 0.9% 1000 ML 1,000 ML IV SCH (04:11)
[2019-11-28] MEDS: NORVASC 5 MG PO SCH (09:13)
[2019-11-28] MEDS: Protonix 40MG Tablet PO SCH (09:14)
--- NOTE | 2019-11-28 09:32 | PCM.SSS ---
History of Present Illness - Chief Complaint Chief Complaint: epigastric pain History of Present Illness: is a 69 year old male pt of Dr. Krishnan with HTN, GERD, anxiety, and IBS who was admitted directly by her yesterday after being seen in the office. Pt c/o 2d of having sx including lightheadedness (no syncope) and abdominal pressure. He described epigastric pressure, 10/1-, radiating to his neck, worse with lying down, constant (although would remit for short periods of time) . Seems worse after meals late rin the day. Seemed better with xanax last night, was a little worse after cookies and milk last night. He describes a "romero" feeling that starts in the epigastrum and radiates up through the neck; is accompanies by facial flushing. He also had diarrhea with that 2d ago (watery). Pt thinks he may have had similar sx years ago, and was given librax, which helped. He was to take it QID but had cut down and was just taking it once daily for about the past 1 week (decided to d/c it due to cost). Pt was admitted recently to [facility] for pancreatitis, sounds as though he had GB u/ s and HIDA scan. - Review of Systems Cardiac: Edema (chronic LE) Abdominal/Gastrointestinal: Abdominal Pain, Diarrhea All Other Systems: Reviewed and Negative Medications & Allergies Home Medications: Home Medication List Amlodipine Besylate 2.5 mg PO DAILY 01/07/16 [History Confirmed 11/27/19] Nebivolol HCl [Bystolic] 10 mg PO HS 01/07/16 [History Confirmed 11/27/19] Famotidine [Pepcid] 40 mg PO DAILY PRN PRN 06/19/19 [History Confirmed 11/27/19] PANTOPRAZOLE 40 mg Tablet [Protonix 40MG Tablet] 40 mg PO QAM 06/19/19 [ History Confirmed 11/27/19] Ropinirole HCl 0.5 mg PO HS 11/27/19 [History Confirmed 11/27/19] Diazepam 5 mg [Valium 5 MG] 5 mg PO DAILY #10 tablet 11/28/19 [Rx] Allergies/Adverse Reactions: Allergies Allergy/AdvReac Type Severity Reaction Status Date / Time codeine [Codeine] Allergy Intermediate Itching Verified 09/28/19 16:33 - Past Medical History Past Medical History: Yes Neurological History: No Pertinent History ENT History: Cataracts Cardiac History: Hypertension Respiratory History: COPD Endocrine Medical History: No Pertinent History Musculoskelatal History: Arthritis GI Medical History: GERD History: No Pertinent History Pyscho-Social History: No Pertinent History Male Reproductive Disorders: No Pertinent History - Past Surgical History Past Surgical History: Yes Neuro Surgical History: No Pertinent History Cardiac History: Cardiac Catheterization Respiratory Surgery: No Pertinent History GI Surgical History: Appendectomy Genitourinary Surgical Hx: No Pertinent History Musculskeletal Surgical Hx: Orthopedic Surgery Male Surgical History: No Pertinent History Other Surgical History: TOTAL KNEE LEFT,HERNIA REPAIR X 2, Knee clean out - Social History Smoking Status: Former smoker Exposure to second hand smoke: No Alcohol: Occasionally Drug Use: none - Physical Exam Vital Signs: Vital Signs - 24 hr Temp Pulse Resp BP BP Pulse Ox 11/28/19 07:23 98.2 F 51 L 15 128/66 95 11/28/19 04:00 98.1 F 63 20 114/71 92 L 11/28/19 00:02 98.3 F 56 L 18 121/69 95 11/27/19 18:37 98.1 F 62 20 131/70 94 L 11/27/19 17:45 62 141/76 11/27/19 16:00 98.4 F 52 L 16 123/72 11/27/19 11:56 98.1 F 62 16 114/67 94 L 11/27/19 09:53 97.8 F 58 L 18 141/76 95 General Appearance: no apparent distress, alert, obese Neurologic Exam: oriented x 3, cooperative Eye Exam: eyes nml inspection Ears, Nose, Throat Exam: moist mucous membranes Neck Exam: normal inspection, non-tender, supple, No lymphadenopathy Respiratory Exam: normal breath sounds, lungs clear, No crackles/rales, No rhonchi, No wheezing Cardiovascular Exam: regular rate/rhythm, normal heart sounds, No murmur Gastrointestinal/Abdomen Exam: soft, normal bowel sounds, tenderness (scattered , more so RUQ/epigastrum) Back Exam: normal inspection, No CVA tenderness, No rash Extremity Exam: normal inspection, No swelling Skin Exam: normal color, warm, dry, No rash Results - Labs Lab/Micro Results: Lab Results-Last 24 Hours 11/27/19 11/27/19 11/27/19 Range/Units 09:53 09:53 09:53 WBC 7.8 (4.0-10.5) K/mm3 RBC 5.35 (4.1-5.6) M/mm3 Hgb 17.5 (12.5-18.0) gm/dl Hct 50.3 H (42-50) % MCV 94.0 (78-100) fl MCH 32.7 H (26-32) pg MCHC 34.8 (32-36) g/dl RDW 12.7 (11.5-14.0) % Plt Count 195 (150-450) K/mm3 MPV 10.7 (7.5-11.0) fl Sodium 140 (137-145) mmol/L Potassium 3.8 (3.5-5.1) mmol/L Chloride 104 (98-107) mmol/L Carbon Dioxide 27 (22-30) mmol/L Anion Gap 12.3 (5-15) MEQ/L BUN 11 (9-20) mg/dL Creatinine 0.74 (0.66-1.25) mg/dL Estimated GFR > 60.0 ML/MIN Glucose 119 H (74-106) mg/dL Calcium 9.5 (8.4-10.2) mg/dL Total Bilirubin 1.00 (0.2-1.3) mg/dL AST 37 (17-59) U/L ALT 38 (0-50) U/L Alkaline Phosphatase 78 (38-126) U/L Troponin I < 0.012 (0.000-0.034) ng/mL Serum Total Protein 8.2 (6.3-8.2) g/dL Albumin 4.5 (3.5-5.0) g/dL Amylase (30-110) U/L Lipase (23-300) U/L TSH 3rd Generation 2.350 (0.47-4.68) mIU/L Urine Color (YELLOW) Urine Appearance (CLEAR) Urine pH (5-6) Ur Specific [place] (1.005-1.025) Urine Protein (Negative) Urine Ketones (NEGATIVE) Urine Blood (0-5) Crispin/ul Urine Nitrite (NEGATIVE) Urine Bilirubin (NEGATIVE) Urine Urobilinogen (0-1) mg/dL Ur Leukocyte Esterase (NEGATIVE) Urine WBC (Auto) (0-5) /HPF Urine RBC (Auto) (0-2) /HPF U Epithel Cells (Auto) (FEW) /HPF Urine Bacteria (Auto) (NEGATIVE) /HPF Urine Culture Reflexed (NO) Urine Glucose (NEGATIVE) mg/dL Urine Opiates Level (NEGATIVE) Ur Methadone (NEGATIVE) Urine Barbiturates (NEGATIVE) Ur Phencyclidine (PCP) (NEGATIVE) Urine Amphetamine (NEGATIVE) U Benzodiazepine Level (NEGATIVE) Urine Cocaine (NEGATIVE) Urine Marijuana (THC) (NEGATIVE) 11/27/19 11/27/19 11/27/19 Range/Units 11:37 11:39 12:57 WBC (4.0-10.5) K/mm3 RBC (4.1-5.6) M/mm3 Hgb (12.5-18.0) gm/dl Hct (42-50) % MCV (78-100) fl MCH (26-32) pg MCHC (32-36) g/dl RDW (11.5-14.0) % Plt Count (150-450) K/mm3 MPV (7.5-11.0) fl Sodium (137-145) mmol/L Potassium (3.5-5.1) mmol/L Chloride (98-107) mmol/L Carbon Dioxide (22-30) mmol/L Anion Gap (5-15) MEQ/L BUN (9-20) mg/dL Creatinine (0.66-1.25) mg/dL Estimated GFR ML/MIN Glucose (74-106) mg/dL Calcium (8.4-10.2) mg/dL Total Bilirubin (0.2-1.3) mg/dL AST (17-59) U/L ALT (0-50) U/L Alkaline Phosphatase (38-126) U/L Troponin I (0.000-0.034) ng/mL Serum Total Protein (6.3-8.2) g/dL Albumin (3.5-5.0) g/dL Amylase 104 (30-110) U/L Lipase 98 (23-300) U/L TSH 3rd Generation (0.47-4.68) mIU/L Urine Color YELLOW (YELLOW) Urine Appearance CLEAR (CLEAR) Urine pH 7.0 (5-6) Ur Specific [place] 1.053 (1.005-1.025) Urine Protein NEGATIVE (Negative) Urine Ketones NEGATIVE (NEGATIVE) Urine Blood NEGATIVE (0-5) Crispin/ul Urine Nitrite NEGATIVE (NEGATIVE) Urine Bilirubin NEGATIVE (NEGATIVE) Urine Urobilinogen NEGATIVE (0-1) mg/dL Ur Leukocyte Esterase NEGATIVE (NEGATIVE) Urine WBC (Auto) NONE (0-5) /HPF Urine RBC (Auto) NONE (0-2) /HPF U Epithel Cells (Auto) NONE (FEW) /HPF Urine Bacteria (Auto) NONE (NEGATIVE) /HPF Urine Culture Reflexed NO (NO) Urine Glucose NEGATIVE (NEGATIVE) mg/dL Urine Opiates Level NEGATIVE (NEGATIVE) Ur Methadone NEGATIVE (NEGATIVE) Urine Barbiturates NEGATIVE (NEGATIVE) Ur Phencyclidine (PCP) NEGATIVE (NEGATIVE) Urine Amphetamine NEGATIVE (NEGATIVE) U Benzodiazepine Level NEGATIVE (NEGATIVE) Urine Cocaine NEGATIVE (NEGATIVE) Urine Marijuana (THC) NEGATIVE (NEGATIVE) 11/27/19 11/27/19 11/27/19 Range/Units 18:07 20:40 23:51 WBC (4.0-10.5) K/mm3 RBC (4.1-5.6) M/mm3 Hgb (12.5-18.0) gm/dl Hct (42-50) % MCV (78-100) fl MCH (26-32) pg MCHC (32-36) g/dl RDW (11.5-14.0) % Plt Count (150-450) K/mm3 MPV (7.5-11.0) fl Sodium (137-145) mmol/L Potassium (3.5-5.1) mmol/L Chloride (98-107) mmol/L Carbon Dioxide (22-30) mmol/L Anion Gap (5-15) MEQ/L BUN (9-20) mg/dL Creatinine (0.66-1.25) mg/dL Estimated GFR ML/MIN Glucose (74-106) mg/dL Calcium (8.4-10.2) mg/dL Total Bilirubin (0.2-1.3) mg/dL AST (17-59) U/L ALT (0-50) U/L Alkaline Phosphatase (38-126) U/L Troponin I < 0.012 < 0.012 < 0.012 (0.000-0.034) ng/mL Serum Total Protein (6.3-8.2) g/dL Albumin (3.5-5.0) g/dL Amylase (30-110) U/L Lipase (23-300) U/L TSH 3rd Generation (0.47-4.68) mIU/L Urine Color (YELLOW) Urine Appearance (CLEAR) Urine pH (5-6) Ur Specific [place] (1.005-1.025) Urine Protein (Negative) Urine Ketones (NEGATIVE) Urine Blood (0-5) Crispin/ul Urine Nitrite (NEGATIVE) Urine Bilirubin (NEGATIVE) Urine Urobilinogen (0-1) mg/dL Ur Leukocyte Esterase (NEGATIVE) Urine WBC (Auto) (0-5) /HPF Urine RBC (Auto) (0-2) /HPF U Epithel Cells (Auto) (FEW) /HPF Urine Bacteria (Auto) (NEGATIVE) /HPF Urine Culture Reflexed (NO) Urine Glucose (NEGATIVE) mg/dL Urine Opiates Level (NEGATIVE) Ur Methadone (NEGATIVE) Urine Barbiturates (NEGATIVE) Ur Phencyclidine (PCP) (NEGATIVE) Urine Amphetamine (NEGATIVE) U Benzodiazepine Level (NEGATIVE) Urine Cocaine (NEGATIVE) Urine Marijuana (THC) (NEGATIVE) - Radiology Impressions Radiology Exams & Impressions: Radiology Procedures Category Date Time Status ABDOMEN AND PELVIS W CONTRAST [CT] Stat Exams 11/27/19 09:42 Completed Assessment/Plan (1) Epigastric pain Current Visit: Yes Status: Acute Assessment & Plan: Could be GI, with an anxiety component, and could be related to librax withdrawal. Could be cardiac; will need to f/u with Dr. Aguilar outpatient ( discussed that pt should have a stress test, he is quite reluctant). Will give valium to wean off of over the next month or so. He needs to continue his GI workup. Code(s): R10.13 - EPIGASTRIC PAIN (2) Facial flushing Current Visit: Yes Status: Acute Assessment & Plan: Pt to do 5-HIAA 24hr urine collection after d/c. Code(s): R23.2 - FLUSHING (3) HTN (hypertension) Current Visit: Yes Status: Acute Qualifiers: Hypertension type: essential hypertension Qualified Code(s): I10 - Essential (primary) hypertension Code(s): I10 - ESSENTIAL (PRIMARY) HYPERTENSION Hospital Summary - Hospital Course Hospital Course: is a 69 year old male pt of Dr. Krishnan with HTN, GERD, anxiety, and IBS who was admitted directly by her yesterday after being seen in the office. Pt c/o 2d of having sx including lightheadedness (no syncope) and abdominal pressure. He described epigastric pressure, 10/10, radiating to his neck, worse with lying down, constant (although would remit for short periods of time) . Seems worse after meals late rin the day. Seemed better with xanax last night, was a little worse after cookies and milk last night. He describes a "romero" feeling that starts in the epigastrum and radiates up through the neck; is accompanies by facial flushing. He also had diarrhea with that 2d ago (watery). Pt thinks he may have had similar sx years ago, and was given librax, which helped. He was to take it QID but had cut down and was just taking it once daily for about the past 1 week (decided to d/c it due to cost). Labs have been non acute. CT abd/pelvis benig (was done with contrast). Pt was admitted recently to [facility] for pancreatitis, sounds as though he had GB u/ s and HIDA scan. Will get those records, but pt is feeling so good today I anticipate sending him home this afternoon. - Vitals & Intake/Output Vital Signs: Vital Signs Temperature 98.2 F 11/28/19 07:23 Pulse Rate 51 L 11/28/19 07:23 Respiratory Rate 15 11/28/19 07:23 Blood Pressure 128/66 11/28/19 07:23 O2 Sat by Pulse Oximetry 95 11/28/19 07:23 Intake & Output: Intake & Output 11/25/19 11/26/19 11/27/19 11/28/19 11:59 11:59 11:59 11:59 Intake Total 240 2195 Output Total 200 Balance 40 2195 Weight 101.2 kg - Lab Result Diagrams: 11/27/19 09:53 11/27/19 09:53 Lab Results-Last 24 Hrs: Lab Results-Last 24 Hours 11/27/19 11/27/19 11/27/19 Range/Units 09:53 09:53 09:53 WBC 7.8 (4.0-10.5) K/mm3 RBC 5.35 (4.1-5.6) M/mm3 Hgb 17.5 (12.5-18.0) gm/dl Hct 50.3 H (42-50) % MCV 94.0 (78-100) fl MCH 32.7 H (26-32) pg MCHC 34.8 (32-36) g/dl RDW 12.7 (11.5-14.0) % Plt Count 195 (150-450) K/mm3 MPV 10.7 (7.5-11.0) fl Sodium 140 (137-145) mmol/L Potassium 3.8 (3.5-5.1) mmol/L Chloride 104 (98-107) mmol/L Carbon Dioxide 27 (22-30) mmol/L Anion Gap 12.3 (5-15) MEQ/L BUN 11 (9-20) mg/dL Creatinine 0.74 (0.66-1.25) mg/dL Estimated GFR > 60.0 ML/MIN Glucose 119 H (74-106) mg/dL Calcium 9.5 (8.4-10.2) mg/dL Total Bilirubin 1.00 (0.2-1.3) mg/dL AST 37 (17-59) U/L ALT 38 (0-50) U/L Alkaline Phosphatase 78 (38-126) U/L Troponin I < 0.012 (0.000-0.034) ng/mL Serum Total Protein 8.2 (6.3-8.2) g/dL Albumin 4.5 (3.5-5.0) g/dL Amylase (30-110) U/L Lipase (23-300) U/L TSH 3rd Generation 2.350 (0.47-4.68) mIU/L Urine Color (YELLOW) Urine Appearance (CLEAR) Urine pH (5-6) Ur Specific [place] (1.005-1.025) Urine Protein (Negative) Urine Ketones (NEGATIVE) Urine Blood (0-5) Crispin/ul Urine Nitrite (NEGATIVE) Urine Bilirubin (NEGATIVE) Urine Urobilinogen (0-1) mg/dL Ur Leukocyte Esterase (NEGATIVE) Urine WBC (Auto) (0-5) /HPF Urine RBC (Auto) (0-2) /HPF U Epithel Cells (Auto) (FEW) /HPF Urine Bacteria (Auto) (NEGATIVE) /HPF Urine Culture Reflexed (NO) Urine Glucose (NEGATIVE) mg/dL Urine Opiates Level (NEGATIVE) Ur Methadone (NEGATIVE) Urine Barbiturates (NEGATIVE) Ur Phencyclidine (PCP) (NEGATIVE) Urine Amphetamine (NEGATIVE) U Benzodiazepine Level (NEGATIVE) Urine Cocaine (NEGATIVE) Urine Marijuana (THC) (NEGATIVE) 11/27/19 11/27/19 11/27/19 Range/Units 11:37 11:39 12:57 WBC (4.0-10.5) K/mm3 RBC (4.1-5.6) M/mm3 Hgb (12.5-18.0) gm/dl Hct (42-50) % MCV (78-100) fl MCH (26-32) pg MCHC (32-36) g/dl RDW (11.5-14.0) % Plt Count (150-450) K/mm3 MPV (7.5-11.0) fl Sodium (137-145) mmol/L Potassium (3.5-5.1) mmol/L Chloride (98-107) mmol/L Carbon Dioxide (22-30) mmol/L Anion Gap (5-15) MEQ/L BUN (9-20) mg/dL Creatinine (0.66-1.25) mg/dL Estimated GFR ML/MIN Glucose (74-106) mg/dL Calcium (8.4-10.2) mg/dL Total Bilirubin (0.2-1.3) mg/dL AST (17-59) U/L ALT (0-50) U/L Alkaline Phosphatase (38-126) U/L Troponin I (0.000-0.034) ng/mL Serum Total Protein (6.3-8.2) g/dL Albumin (3.5-5.0) g/dL Amylase 104 (30-110) U/L Lipase 98 (23-300) U/L TSH 3rd Generation (0.47-4.68) mIU/L Urine Color YELLOW (YELLOW) Urine Appearance CLEAR (CLEAR) Urine pH 7.0 (5-6) Ur Specific [place] 1.053 (1.005-1.025) Urine Protein NEGATIVE (Negative) Urine Ketones NEGATIVE (NEGATIVE) Urine Blood NEGATIVE (0-5) Crispin/ul Urine Nitrite NEGATIVE (NEGATIVE) Urine Bilirubin NEGATIVE (NEGATIVE) Urine Urobilinogen NEGATIVE (0-1) mg/dL Ur Leukocyte Esterase NEGATIVE (NEGATIVE) Urine WBC (Auto) NONE (0-5) /HPF Urine RBC (Auto) NONE (0-2) /HPF U Epithel Cells (Auto) NONE (FEW) /HPF Urine Bacteria (Auto) NONE (NEGATIVE) /HPF Urine Culture Reflexed NO (NO) Urine Glucose NEGATIVE (NEGATIVE) mg/dL Urine Opiates Level NEGATIVE (NEGATIVE) Ur Methadone NEGATIVE (NEGATIVE) Urine Barbiturates NEGATIVE (NEGATIVE) Ur Phencyclidine (PCP) NEGATIVE (NEGATIVE) Urine Amphetamine NEGATIVE (NEGATIVE) U Benzodiazepine Level NEGATIVE (NEGATIVE) Urine Cocaine NEGATIVE (NEGATIVE) Urine Marijuana (THC) NEGATIVE (NEGATIVE) 11/27/19 11/27/19 11/27/19 Range/Units 18:07 20:40 23:51 WBC (4.0-10.5) K/mm3 RBC (4.1-5.6) M/mm3 Hgb (12.5-18.0) gm/dl Hct (42-50) % MCV (78-100) fl MCH (26-32) pg MCHC (32-36) g/dl RDW (11.5-14.0) % Plt Count (150-450) K/mm3 MPV (7.5-11.0) fl Sodium (137-145) mmol/L Potassium (3.5-5.1) mmol/L Chloride (98-107) mmol/L Carbon Dioxide (22-30) mmol/L Anion Gap (5-15) MEQ/L BUN (9-20) mg/dL Creatinine (0.66-1.25) mg/dL Estimated GFR ML/MIN Glucose (74-106) mg/dL Calcium (8.4-10.2) mg/dL Total Bilirubin (0.2-1.3) mg/dL AST (17-59) U/L ALT (0-50) U/L Alkaline Phosphatase (38-126) U/L Troponin I < 0.012 < 0.012 < 0.012 (0.000-0.034) ng/mL Serum Total Protein (6.3-8.2) g/dL Albumin (3.5-5.0) g/dL Amylase (30-110) U/L Lipase (23-300) U/L TSH 3rd Generation (0.47-4.68) mIU/L Urine Color (YELLOW) Urine Appearance (CLEAR) Urine pH (5-6) Ur Specific [place] (1.005-1.025) Urine Protein (Negative) Urine Ketones (NEGATIVE) Urine Blood (0-5) Crispin/ul Urine Nitrite (NEGATIVE) Urine Bilirubin (NEGATIVE) Urine Urobilinogen (0-1) mg/dL Ur Leukocyte Esterase (NEGATIVE) Urine WBC (Auto) (0-5) /HPF Urine RBC (Auto) (0-2) /HPF U Epithel Cells (Auto) (FEW) /HPF Urine Bacteria (Auto) (NEGATIVE) /HPF Urine Culture Reflexed (NO) Urine Glucose (NEGATIVE) mg/dL Urine Opiates Level (NEGATIVE) Ur Methadone (NEGATIVE) Urine Barbiturates (NEGATIVE) Ur Phencyclidine (PCP) (NEGATIVE) Urine Amphetamine (NEGATIVE) U Benzodiazepine Level (NEGATIVE) Urine Cocaine (NEGATIVE) Urine Marijuana (THC) (NEGATIVE) - Radiology Exams Ordered Rad Exams-Entire Visit: Radiology Procedures Category Date Time Status ABDOMEN AND PELVIS W CONTRAST [CT] Stat Exams 11/27/19 09:42 Completed - Procedures and Test Procedures and Tests throughout Hospitalization: Therapy Orders & Screens 11/27/19 09:39 EKG ROUTINE Comment: - Discharge Disposition: Home, Self-Care Condition: Stable Prescriptions: New Diazepam 5 mg [Valium 5 MG] 5 mg PO DAILY #10 tablet Continue Amlodipine Besylate 2.5 mg PO DAILY Nebivolol HCl [Bystolic] 10 mg PO HS Famotidine [Pepcid] 40 mg PO DAILY PRN PRN PRN Reason: Indigestion PANTOPRAZOLE 40 mg Tablet [Protonix 40MG Tablet] 40 mg PO QAM Ropinirole HCl 0.5 mg PO HS Discontinued Clidinium/Chlordiazepoxide [Librax] 1 cap PO DAILY Follow up with: MIGUELINA KRISHNAN MD [Primary Care Provider] - 1 Week
[2019-11-28] MEDS ORDERED: NON-FORMULARY ITEM (Amlodipine Besylate [Amlodipine Besylate] 2.5 MG) PO SCH (10:00)
[2019-11-28 11:37] VITALS: BP 118/64; PULSE 57; O2SAT 94
== END 2019-11-28 12:30 | disposition home or self-care (01) ==
LOC: MED SURG 09:23
PROVIDERS: ADMIT Family Medicine; ATTEND Family Medicine
DX: R10.13 Epigastric pain (principal); I10 Essential (primary) hypertension; F41.9 Anxiety disorder, unspecified; J44.9 Chronic obstructive pulmonary disease, unspecified; R23.2 Flushing; R19.7 Diarrhea, unspecified; Z79.899 Other long term (current) drug therapy; Z86.39 Personal history of other endocrine, nutritional and metabolic disease
CPT/HCPCS: 36415; 74177; 80053; 80307; 81001; 82150; 83690; 84443; 84484; 85027; 93005; 93268; A9270-GY; G0378

== ENCOUNTER 2021-11-22 16:18 | Emergency (ER) | payer MEDICARE, OTHER ==
[2021-11-22] MEDS ORDERED: Sodium Chloride 0.9% 1000 ML 1,000 ML IV STA (17:18)
[2021-11-22] MEDS ORDERED: Sodium Chloride 0.9% 1000 ML 1,000 ML ONE (17:28)
--- NOTE | 2021-11-22 17:34 | ERPHSYRPT ---
- History of Present Illness Time Seen by Provider: 11/22/21 16:55 Source: patient Exam Limitations: no limitations Patient Subjective Stated Complaint: pt reports feeling dizzy upon standing on multiple occasions for the last two days, pt states that today he felt dizzy for about an hour after he stood and just felt uncomfortable. pt denies pain at this time. pt does report a recent change in his BP meds. Triage Nursing Assessment: pt is aox3, pt speech clear, appropriate, pupils perrl, afebrile, resps easy and non labored, radial pulses strong and equal, cap refill < 3 seconds, pt skin pink warm dry. Physician History: 71-year-old male with history of hypertension presented to the ER with chief complaint of feeling dizzy and lightheaded for the last 2 days. Patient reported initially it was more with standing, lasting for few minutes and improved and now having more with sitting as well and earlier he was at [employer] and bent over and remained dizzy/lightheaded for almost an hour. Denies any blurry vision, numbness tingling or focal weakness. Denies any room spinning sensation but does describe this as uncomfortable feeling. Denies any palpitations chest pain or shortness of breath during the episode. No abdominal pain nausea vomiting or diarrhea reported. Timing/Duration: day(s) (2), intermittent, gradual onset, worse Severity: moderate Associated Symptoms: nausea, No vomiting, No abdominal pain, No shortness of br eath, No heartburn, No diaphoresis, No cough, No chills, No chest pain, No fever, No headaches, No loss of appetite, No malaise, No syncope, No seizure Allergies/Adverse Reactions: codeine [Codeine] Allergy (Intermediate, Verified 09/28/19 16:33) Itching Home Medications: Amlodipine Besylate 2.5 mg PO DAILY 01/07/16 [History] Nebivolol HCl [Bystolic] 10 mg PO HS 01/07/16 [History] Famotidine [Pepcid] 40 mg PO DAILY PRN PRN 06/19/19 [History] PANTOPRAZOLE 40 mg Tablet [Protonix 40MG Tablet] 40 mg PO QAM 06/19/19 [History] Ropinirole HCl 0.5 mg PO HS 11/27/19 [History] Hx Tetanus, Diphtheria Vaccination/Date Given: Yes Hx Influenza Vaccination/Date Given: No Hx Pneumococcal Vaccination/Date Given: No Immunizations Up to Date: Yes Travel Risk - International Travel Have you traveled outside of the country in past 3 weeks: No - Coronavirus Screening Are you exhibiting any of the following symptoms?: No - Vaccine Status Have you recieved a Covid-19 vaccination: No - Review of Systems Constitutional: No Symptoms Eyes: No Symptoms Ears, Nose, & Throat: No Symptoms Respiratory: No Symptoms Cardiac: No Symptoms Abdominal/Gastrointestinal: No Symptoms Genitourinary Symptoms: No Symptoms Musculoskeletal: No Symptoms Neurological: Dizziness Psychological: No Symptoms Endocrine: No Symptoms Hematologic/Lymphatic: No Symptoms Immunological/Allergic: No Symptoms - Past Medical History Pertinent Past Medical History: Yes Neurological History: No Pertinent History ENT History: Cataracts Cardiac History: Hypertension Respiratory History: COPD Endocrine Medical History: No Pertinent History Musculoskeletal History: Arthritis GI Medical History: GERD History: No Pertinent History Psycho-Social History: No Pertinent History Male Reproductive Disorders: No Pertinent History - Past Surgical History Past Surgical History: Yes Neuro Surgical History: No Pertinent History Cardiac: Cardiac Catheterization Respiratory: No Pertinent History Gastrointestinal: Appendectomy Genitourinary: No Pertinent History Musculoskeletal: Orthopedic Surgery Male Surgical History: No Pertinent History Other Surgical History: TOTAL KNEE LEFT,HERNIA REPAIR X 2, Knee clean out - Social History Smoking Status: Former smoker Exposure to second hand smoke: No Drug Use: none Patient Lives Alone: No - Nursing Vital Signs Nursing Vital Signs: Initial Vital Signs Temperature 98.5 F 11/22/21 16:46 Pulse Rate 70 11/22/21 16:46 Respiratory Rate 18 11/22/21 16:46 Blood Pressure 155/75 11/22/21 16:46 O2 Sat by Pulse Oximetry 96 11/22/21 16:46 Pain Scale Pain Intensity 0 - Physical Exam General Appearance: no apparent distress, alert Eye Exam: PERRL/EOMI, eyes nml inspection Ears, Nose, Throat Exam: normal ENT inspection, TMs normal, pharynx normal, moist mucous membranes Neck Exam: normal inspection, non-tender, supple, full range of motion Respiratory Exam: normal breath sounds, lungs clear Cardiovascular Exam: regular rate/rhythm, normal heart sounds Gastrointestinal/Abdomen Exam: soft, normal bowel sounds, No tenderness Back Exam: normal inspection, normal range of motion Extremity Exam: normal inspection, normal range of motion Neurologic Exam: alert, oriented x 3, cooperative, plant safety leader II-XII nml as tested, normal mood/affect, nml cerebellar function, nml station & gait, sensation nml, No motor deficits Skin Exam: normal color SpO2 Interpretation: normal SpO2: 96 O2 Delivery: Room Air - Course EKG Interpreted by Me: RATE ([id number]), Sinus Rhythm, NORMAL AXIS, NORMAL INTERVALS, NORMAL QRS Ordered Tests: Active Orders 24 hr Category Date Time Status EKG-ER Only STAT Care 11/22/21 17:18 Active IV Insertion STAT Care 11/22/21 17:18 Active Orthostatic Vital Signs STAT Care 11/22/21 17:18 Active CHEST 1 VIEW (PORTABLE) Stat Exams 11/22/21 17:18 Completed HEAD WITHOUT CONTRAST [CT] Stat Exams 11/22/21 17:18 Taken CBC W DIFF Stat Lab 11/22/21 17:24 Completed CMP Stat Lab 11/22/21 17:24 Completed Lactic Acid Stat Lab 11/22/21 17:18 Completed MAGNESIUM Stat Lab 11/22/21 17:24 Completed TROPONIN Q3H Lab 11/22/21 17:24 Completed TROPONIN Q3H Lab 11/22/21 20:30 Ordered TROPONIN Q3H Lab 11/22/21 23:30 Ordered TROPONIN Q3H Lab 11/23/21 02:30 Ordered TROPONIN Q3H Lab 11/23/21 05:30 Ordered Holter Monitor ONCE RT 11/22/21 20:13 Active Medication Summary Discontinued Medications Generic Name Dose Route Start Last Admin Trade Name Freq PRN Reason Stop Dose Admin Sodium Chloride 1,000 mls @ 999 mls/hr 11/22/21 17:18 11/22/21 18:48 Sodium Chloride 0.9% 1000 Ml IV 11/22/21 18:18 Infused .Q1H1M STA Infusion Sodium Chloride Confirm 11/22/21 17:28 Sodium Chloride 0.9% 1000 Ml Administered 11/22/21 17:29 Dose 1,000 mls @ ud .ROUTE .K-MED ONE Lab/Rad Data: Laboratory Result Diagrams 11/22/21 17:24 11/22/21 17:24 Laboratory Results 11/22/21 11/22/21 11/22/21 Range/Units 19:09 17:24 17:24 WBC (4.0-10.5) K/mm3 RBC (4.1-5.6) M/mm3 Hgb (12.5-18.0) gm/dl Hct (42-50) % MCV (78-100) fl MCH (26-32) pg MCHC (32-36) g/dl RDW (11.5-14.0) % Plt Count (150-450) K/mm3 MPV (7.5-11.0) fl Gran % (36.0-66.0) % Eos # (Auto) (0-0.5) Absolute Lymphs (auto) (1.0-4.6) Absolute Monos (auto) (0.0-1.3) Lymphocytes % (24.0-44.0) % Monocytes % (0.0-12.0) % Eosinophils % (0.00-5.0) % Basophils % (0.0-0.4) % Absolute Granulocytes (1.4-6.9) Basophils # (0-0.4) Sodium 135 L (137-145) mmol/L Potassium 3.8 (3.5-5.1) mmol/L Chloride 100 (98-107) mmol/L Carbon Dioxide 25 (22-30) mmol/L Anion Gap 13.9 (5-15) MEQ/L BUN 10 (9-20) mg/dL Creatinine 0.77 (0.66-1.25) mg/dL Estimated GFR > 60.0 ML/MIN Glucose 142 H (74-106) mg/dL Lactic Acid (0.4-2.0) Calcium 8.4 (8.4-10.2) mg/dL Magnesium 2.2 (1.6-2.3) mg/dL Total Bilirubin 0.80 (0.2-1.3) mg/dL AST 144 H (17-59) U/L ALT 111 H (0-50) U/L Alkaline Phosphatase 89 (38-126) U/L Troponin I < 0.012 (0.000-0.034) ng/mL Serum Total Protein 6.7 (6.3-8.2) g/dL Albumin 3.7 (3.5-5.0) g/dL Urinalys Dipstick Clnc MAIN LAB Urine Color YELLOW (YELLOW) Urine Appearance CLEAR (CLEAR) Urine pH 7.0 (5-6) Ur Specific [place] 1.020 (1.005-1.025) POC Urine Protein Conf NEGATIVE (Negative) Urine Ketones NEGATIVE (NEGATIVE) Urine Nitrite NEGATIVE (NEGATIVE) Urine Bilirubin NEGATIVE (NEGATIVE) Urine Urobilinogen 1 (0-1) mg/dL Urine Leukocytes NEGATIVE (NEGATIVE) Urine WBC (Auto) NONE (0-5) /HPF Urine RBC (Auto) NONE (0-2) /HPF U Epithel Cells (Auto) NONE (FEW) /HPF Urine Bacteria (Auto) NONE (NEGATIVE) /HPF Urine RBC NEGATIVE (0-5) Crispin/ul Urine Mucus (Auto) SLIGHT (NEGATIVE) /HPF Ur Culture Indicated? NO Urine Glucose NEGATIVE (NEGATIVE) mg/dL 11/22/21 11/22/21 Range/Units 17:24 17:18 WBC 5.4 (4.0-10.5) K/mm3 RBC 4.69 (4.1-5.6) M/mm3 Hgb 16.0 (12.5-18.0) gm/dl Hct 46.6 (42-50) % MCV 99.4 (78-100) fl MCH 34.1 H (26-32) pg MCHC 34.3 (32-36) g/dl RDW 13.0 (11.5-14.0) % Plt Count 163 (150-450) K/mm3 MPV 10.6 (7.5-11.0) fl Gran % 53.5 (36.0-66.0) % Eos # (Auto) 0.14 (0-0.5) Absolute Lymphs (auto) 0.94 L (1.0-4.6) Absolute Monos (auto) 1.41 H (0.0-1.3) Lymphocytes % 17.3 L (24.0-44.0) % Monocytes % 26.0 H (0.0-12.0) % Eosinophils % 2.6 (0.00-5.0) % Basophils % 0.6 (0.0-0.4) % Absolute Granulocytes 2.90 (1.4-6.9) Basophils # 0.03 (0-0.4) Sodium (137-145) mmol/L Potassium (3.5-5.1) mmol/L Chloride (98-107) mmol/L Carbon Dioxide (22-30) mmol/L Anion Gap (5-15) MEQ/L BUN (9-20) mg/dL Creatinine (0.66-1.25) mg/dL Estimated GFR ML/MIN Glucose (74-106) mg/dL Lactic Acid 2.0 (0.4-2.0) Calcium (8.4-10.2) mg/dL Magnesium (1.6-2.3) mg/dL Total Bilirubin (0.2-1.3) mg/dL AST (17-59) U/L ALT (0-50) U/L Alkaline Phosphatase (38-126) U/L Troponin I (0.000-0.034) ng/mL Serum Total Protein (6.3-8.2) g/dL Albumin (3.5-5.0) g/dL Urinalys Dipstick Clnc Urine Color (YELLOW) Urine Appearance (CLEAR) Urine pH (5-6) Ur Specific [place] (1.005-1.025) POC Urine Protein Conf (Negative) Urine Ketones (NEGATIVE) Urine Nitrite (NEGATIVE) Urine Bilirubin (NEGATIVE) Urine Urobilinogen (0-1) mg/dL Urine Leukocytes (NEGATIVE) Urine WBC (Auto) (0-5) /HPF Urine RBC (Auto) (0-2) /HPF U Epithel Cells (Auto) (FEW) /HPF Urine Bacteria (Auto) (NEGATIVE) /HPF Urine RBC (0-5) Crispin/ul Urine Mucus (Auto) (NEGATIVE) /HPF Ur Culture Indicated? Urine Glucose (NEGATIVE) mg/dL - Progress Progress: improved Progress Note: 11/22/21 20:24 71-year-old is evaluated for dizziness. Nonfocal neuro exam. EKG showed sinus rhythm without any acute ischemic changes and negative troponins. Chest x-ray negative for any acute findings. Chemistry is grossly unremarkable except for elevated transaminases and patient does admit drinking alcohol regularly. CT head is negative for any acute findings. Given fluids and feeling much better on reevaluation. Patient does have some PACs on monitor, placed on monitoring device. Recommended admission and further work-up to find out cardiac neuro cause but patient does not want to stay in the hospital at all, states "I feel much better and want to leave". Patient is also offered to have CTA done which she refuses as well. He does understand the risk of leaving without full work- up and worsening of condition which could be debilitating including but still wants to leave. He is not confused or altered at all. He is advised to follow-up outpatient primary care and cardiology. Discussed signs symptoms of worsening needing return to ER which he seems understanding. Counseled pt/family regarding: lab results, diagnosis, need for follow-up, rad results - Departure Departure Disposition: In-patient Admission Clinical Impression: Dizziness Condition: Stable Critical Care Time: No Referrals: LÓPEZ NEGRETE MD [Primary Care Provider] - Follow up/PCP as directed (2 days for re evaluation ) DAVID ALVARADO MD [NON-STAFF PHY W/O PRIVILEGES] - Follow up/PCP as directed (call for appointment) Instructions: Dizziness, Nonvertigo, (DC) Additional Instructions: Drink plenty of fluids to keep yourself well-hydrated. Follow-up with primary care and cardiology for reevaluation. Return to ER for worsening dizziness/lightheadedness, chest pain palpitations shortness of breath, numbness tingling or weakness.
[2021-11-22 17:39] LABS: Basophil (Absolute #) 0.03 (0-0.4); Eosinophil % 2.6 % (0.00-5.0); Eosinophil (Absolute #) 0.14 (0-0.5); Hematocrit 46.6 % (42-50); Lymphocyte (Absolute #) 0.94 (1.0-4.6); Lymphocytes % 17.3 % (24.0-44.0); Mean Cell Volume 99.4 fl (78-100); Mean Corpuscular Hemoglobin 34.1 pg (26-32); Mean Corpuscular Hgb Concent. 34.3 g/dl (32-36); Mean Platelet Volume 10.6 fl (7.5-11.0); Monocyte (Absolute #) 1.41 (0.0-1.3); Neutrophil % 53.5 % (36.0-66.0); Platelet Count 163 K/mm3 (150-450); Red Blood Count 4.69 M/mm3 (4.1-5.6); White Blood Count 5.4 K/mm3 (4.0-10.5)
--- NOTE | 2021-11-22 17:49 | XRAY ---
Indication: Dizziness. Comparison: September 28, 2019. Portable apical lordotic chest remains inflated and clear. Heart not enlarged. Bony thorax intact with osteopenia and degenerative changes. No new/acute findings.
[2021-11-22 18:37] LABS: ALBUMIN 3.7 g/dL (3.5-5.0); ALKALINE PHOSPHATASE 89 U/L (38-126); ANION GAP 13.9 MEQ/L (5-15); BLOOD UREA NITROGEN 10 mg/dL (9-20); CHLORIDE 100 mmol/L (98-107); Calcium 8.4 mg/dL (8.4-10.2); Carbon Dioxide 25 mmol/L (22-30); Creatinine 1 0.77 mg/dL (0.66-1.25); EST GLOMERULAR FILTRATION RATE > 60.0 ML/MIN; Glucose 142 mg/dL (74-106); MAGNESIUM 2.2 mg/dL (1.6-2.3); Potassium 3.8 mmol/L (3.5-5.1); SGOT/AST 144 U/L (17-59); SGPT/ALT 111 U/L (0-50); SODIUM 135 mmol/L (137-145); Total Protein 6.7 g/dL (6.3-8.2)
[2021-11-22 19:33] LABS: Mucus SLIGHT /HPF (NEGATIVE)
[2021-11-22 19:35] LABS: Appearance CLEAR (CLEAR); Bilirubin NEGATIVE (NEGATIVE); Dipstick done @ ? MAIN LAB; Glucose NEGATIVE (NEGATIVE); Ketones NEGATIVE (NEGATIVE); Nitrite NEGATIVE (NEGATIVE); Protein,Urine Dip NEGATIVE (Negative); RBC NEGATIVE Ery/ul (0-5); Urine Cultured Indicated? NO; Urobilinogen 1 mg/dL (0-1)
[2021-11-22 20:12] VITALS: O2SAT 96
[2021-11-22 20:20] VITALS: BP 148/95; PULSE 68
--- NOTE | 2021-11-22 21:29 | XRAY ---
Indication: Dizziness. Multiple contiguous axial images obtained through the head without contrast. Comparison: None Age-appropriate global atrophy. No acute intracranial hemorrhage, abnormal extra-axial fluid collection, or mass effect. Fourth ventricle is midline without hydrocephalus. Stacy-white matter differentiation preserved. Bony calvarium intact. Visualized paranasal sinuses and mastoid air cells are clear. Impression: No acute intracranial abnormalities. Comment: Preliminary interpretation made by [facility]. No critical discrepancy.
--- NOTE | 2021-11-24 12:12 | HOLTER ---
DATE OF PROCEDURE: 11/22/2021 PROCEDURE: Holter monitor report. REASON FOR EXAMINATION: Dizziness. DESCRIPTION OF PROCEDURE: He had 16 hours of Holter monitoring. The average heart rate was 65 beats/minute. The minimum heart rate was 45 beats/minute at 3:41 a.m. and the maximum heart rate was 112 beats/minute at 3:17 a.m. 566 beats were classified as ventricular ectopic beats. 13 beats were in two runs, 3 beats were in triplets, 16 beats were in couplets. The longest run occurred at 11:02 p.m. consisting of 9 beats with a maximum heart rate of 171 beats/minute. There were 7 hours of bradycardia. The minimum heart rate was 45 beats/minute. There was 1 minute and 38 seconds of tachycardia and heart rate of 112 beats/minute. 1312 beats were classified as supraventricular ectopic beats, 42 were in 8 runs and 74 were in atrial couplets. The longest run occurred at 7:34 a.m. consisting of 10 beats with a maximum heart rate of 118 beats/minute. The fastest run occurred at 8:41 a.m. consisting of 4 beats with a maximum heart rate of 138 beats/minute. Review of the rhythm strips confirmed the presence of atrial premature contractions including interatrial pair and premature ventricular contractions, sinus tachycardia was confirmed. Ventricular couplet was confirmed. An episode of nonsustained ventricular tachycardia was confirmed. IMPRESSION: SINUS RHYTHM WITH NONSUSTAINED VENTRICULAR TACHYCARDIA AND ATRIAL PREMATURE CONTRACTIONS.
== END 2021-11-22 20:25 | disposition home or self-care (01) ==
LOC: ED 16:18
DX: R42 Dizziness and giddiness (principal); R11.0 Nausea; I10 Essential (primary) hypertension; J44.9 Chronic obstructive pulmonary disease, unspecified; K21.9 Gastro-esophageal reflux disease without esophagitis; Z79.899 Other long term (current) drug therapy
CPT/HCPCS: 36000; 36415; 70450; 71045; 80053; 81015; 83605; 83735; 84484; 85025; 93005; 93225; 96360; 99284

== ENCOUNTER 2021-12-06 13:39 | Emergency (ER) | payer MEDICARE, OTHER ==
[2021-12-06] MEDS ORDERED: Sodium Chloride 0.9% 1000 ML 1,000 ML IV STA (14:40)
[2021-12-06] MEDS ORDERED: Sodium Chloride 0.9% 1000 ML 1,000 ML ONE (14:46)
[2021-12-06 15:07] LABS: Absolute Neutrophil Ct (ANC) 3.29 (1.4-6.9); Basophil (Absolute #) 0.04 (0-0.4); Eosinophil % 3.6 % (0.00-5.0); Eosinophil (Absolute #) 0.19 (0-0.5); Hemoglobin 15.9 gm/dl (12.5-18.0); Lymphocyte (Absolute #) 0.98 (1.0-4.6); Lymphocytes % 18.6 % (24.0-44.0); Mean Cell Volume 98.5 fl (78-100); Mean Corpuscular Hemoglobin 33.3 pg (26-32); Mean Corpuscular Hgb Concent. 33.8 g/dl (32-36); Mean Platelet Volume 10.9 fl (7.5-11.0); Monocyte (Absolute #) 0.76 (0.0-1.3); Monocytes % 14.4 % (0.0-12.0); Neutrophil % 62.6 % (36.0-66.0); Platelet Count 233 K/mm3 (150-450); Red Blood Count 4.77 M/mm3 (4.1-5.6); Red Cell Distribution Width 12.8 % (11.5-14.0); White Blood Count 5.3 K/mm3 (4.0-10.5)
[2021-12-06 15:13] LABS: ANION GAP 15.8 MEQ/L (5-15); BLOOD UREA NITROGEN 6 mg/dL (9-20); CHLORIDE 101 mmol/L (98-107); Calcium 8.8 mg/dL (8.4-10.2); Carbon Dioxide 24 mmol/L (22-30); EST GLOMERULAR FILTRATION RATE > 60.0 ML/MIN; Glucose 98 mg/dL (74-106); Potassium 3.9 mmol/L (3.5-5.1); SODIUM 137 mmol/L (137-145)
[2021-12-06 15:25] VITALS: BP 131/73; PULSE 76; O2SAT 98
[2021-12-06 15:43] LABS: Mucus SLIGHT /HPF (NEGATIVE)
[2021-12-06 15:45] LABS: Appearance CLEAR (CLEAR); Bilirubin NEGATIVE (NEGATIVE); Glucose NEGATIVE (NEGATIVE); Ketones NEGATIVE (NEGATIVE); Ph 5.5 (5-6); RBC TRACE-INTACT Ery/ul (0-5)
[2021-12-06 15:46] LABS: Nitrite NEGATIVE (NEGATIVE); Protein,Urine Dip NEGATIVE (Negative); Urobilinogen 0.2 mg/dL (0-1)
[2021-12-06 15:58] LABS: Amphetamine,Urine NEGATIVE (NEGATIVE); Barbiturate,Urine NEGATIVE (NEGATIVE); Benzodiazepine,Urine NEGATIVE (NEGATIVE); Cocaine,Urine NEGATIVE (NEGATIVE); Methadone,Urine NEGATIVE (NEGATIVE); Opiate,Urine NEGATIVE (NEGATIVE); PCP,Urine NEGATIVE (NEGATIVE); THC,Urine NEGATIVE (NEGATIVE)
--- NOTE | 2021-12-06 16:01 | ERPHSYRPT ---
- History of Present Illness Time Seen by Provider: 12/06/21 13:49 Source: patient Exam Limitations: no limitations Patient Subjective Stated Complaint: Pt states that he had blood work done yesterday and was supposed to come back in and have his Potassium redrawn but he wasn't feeling right so he decided to be seen, states that he feels light headed and "just not right", this is his 3rd visit to a hospital for this Triage Nursing Assessment: Pt brought self to the ER, vitals wnl, denies pain, pt had been here towards the end of October, and then went to an Er in [place] right after for the same issues and then returns again today, admits to not drinking much water, states that his hands have been cramping, pulses normal, skin n/w/d, no difficulty with breathing, denies N&V, doesn't appear to be in any distress Physician History: 71-year-old male with history of hypertension, hyperlipidemia, intermittent spel ls of dizziness for last few weeks was evaluated in this ER ast month and then again in [place] with negative work-up presented in the ER with having an episode of feeling dizzy lightheaded while he in the hospital for lab draw because of elevated potassium on work-up done yesterday. Patient reports he felt generalized weakness, feeling of uneasiness all over without palpitations or difficulty breathing/chest pain. Also reports having feeling of some blurry vision which goes with these episodes. Her symptoms are resolved currently and is asymptomatic. Symptoms occur with physical activity and better with resting. Patient was given Holter monitor last time when he was here and it did show some episodes of V. tach. Denies any focal numbness tingling/weakness. No diplopia, difficulty speech etc. Timing/Duration: week(s), intermittent, improved Severity: moderate Modifying Factors: Worsens With: movement Associated Symptoms: weakness, No nausea, No vomiting, No abdominal pain, No sh ortness of breath, No heartburn, No diaphoresis, No chest pain, No syncope Allergies/Adverse Reactions: codeine [Codeine] Allergy (Intermediate, Verified 12/06/21 13:55) Itching Home Medications: Nebivolol HCl [Bystolic] 15 mg PO HS 01/07/16 [History] Famotidine [Pepcid] 40 mg PO DAILY PRN PRN 06/19/19 [History] PANTOPRAZOLE 40 mg Tablet [Protonix 40MG Tablet] 40 mg PO QAM 06/19/19 [History] Albuterol Sulfate [Albuterol Sulfate Hfa] 1 inh PO UD 12/06/21 [History] Lisinopril 5 mg [Zestril 5 MG] 5 mg PO DAILY 12/06/21 [History] Rosuvastatin Calcium 10 mg PO DAILY 12/06/21 [History] Tamsulosin HCl 0.4 mg [Flomax 0.4 MG] 0.4 mg PO DAILY 12/06/21 [History] Hx Tetanus, Diphtheria Vaccination/Date Given: Yes Hx Influenza Vaccination/Date Given: No Hx Pneumococcal Vaccination/Date Given: No Travel Risk - International Travel Have you traveled outside of the country in past 3 weeks: No - Coronavirus Screening Are you exhibiting any of the following symptoms?: No Close contact with a COVID-19 positive Pt in past 14-21 Days: No - Vaccine Status Have you recieved a Covid-19 vaccination: No - Review of Systems Constitutional: Fatigue, Weakness Eyes: No Symptoms Ears, Nose, & Throat: No Symptoms Respiratory: No Symptoms Cardiac: No Symptoms Abdominal/Gastrointestinal: No Symptoms Genitourinary Symptoms: No Symptoms Musculoskeletal: No Symptoms Skin: No Symptoms Neurological: Dizziness Psychological: No Symptoms Endocrine: No Symptoms Hematologic/Lymphatic: No Symptoms Immunological/Allergic: No Symptoms - Past Medical History Pertinent Past Medical History: Yes Neurological History: No Pertinent History ENT History: Cataracts Cardiac History: Hypertension Respiratory History: COPD Endocrine Medical History: No Pertinent History Musculoskeletal History: Arthritis GI Medical History: GERD History: No Pertinent History Psycho-Social History: No Pertinent History Male Reproductive Disorders: No Pertinent History - Past Surgical History Past Surgical History: Yes Neuro Surgical History: No Pertinent History Cardiac: Cardiac Catheterization Respiratory: No Pertinent History Gastrointestinal: Appendectomy Genitourinary: No Pertinent History Musculoskeletal: Orthopedic Surgery Male Surgical History: No Pertinent History Other Surgical History: TOTAL KNEE LEFT,HERNIA REPAIR X 2, Knee clean out - Social History Smoking Status: Former smoker Exposure to second hand smoke: No Drug Use: none Patient Lives Alone: No - Nursing Vital Signs Nursing Vital Signs: Initial Vital Signs Pulse Rate 76 12/06/21 15:24 Respiratory Rate 18 12/06/21 15:24 Blood Pressure 131/73 12/06/21 15:24 O2 Sat by Pulse Oximetry 98 12/06/21 15:24 Pain Scale Pain Intensity 0 - Physical Exam General Appearance: no apparent distress, alert Eye Exam: PERRL/EOMI, eyes nml inspection Ears, Nose, Throat Exam: normal ENT inspection, TMs normal, pharynx normal, moist mucous membranes Neck Exam: normal inspection, supple, full range of motion Respiratory Exam: normal breath sounds, lungs clear Cardiovascular Exam: regular rate/rhythm, normal heart sounds Gastrointestinal/Abdomen Exam: soft, normal bowel sounds, No tenderness Back Exam: normal inspection, normal range of motion Extremity Exam: normal inspection, normal range of motion Neurologic Exam: alert, oriented x 3, cooperative, grocery caddy II-XII nml as tested, nml cerebellar function, nml station & gait, sensation nml, other (Bilateral negative Babinski's. 2+ reflexes symmetrical bilaterally. Normal tone. No tremors. Negative past-pointing, rapid alternating movement and [id number] test. Negative Romberg.), No normal mood/affect (Anxious), No motor deficits Skin Exam: normal color SpO2 Interpretation: normal SpO2: 98 O2 Delivery: Room Air - Course EKG Interpreted by Me: RATE (71), Sinus Rhythm, NORMAL AXIS, NORMAL INTERVALS, NORMAL QRS Ordered Tests: Active Orders 24 hr Category Date Time Status Shorthand Reporter STAT Care 12/06/21 14:42 Active EKG-ER Only STAT Care 12/06/21 14:40 Active IV Insertion STAT Care 12/06/21 14:40 Active Orthostatic Vital Signs STAT Care 12/06/21 15:24 Active CHEST 1 VIEW (PORTABLE) Stat Exams 12/06/21 14:42 Taken BMP Stat Lab 12/06/21 13:45 Completed BNP [NT PRO BNP] Stat Lab 12/06/21 15:57 Completed CBC W DIFF Stat Lab 12/06/21 13:45 Completed MAG [MAGNESIUM] Stat Lab 12/06/21 15:57 Completed TROPONIN Q3H Lab 12/06/21 13:45 Completed TROPONIN Q3H Lab 12/06/21 17:45 Ordered TROPONIN Q3H Lab 12/06/21 20:45 Ordered TROPONIN Q3H Lab 12/06/21 23:45 Ordered TROPONIN Q3H Lab 12/07/21 02:45 Ordered UA W/RFX CULTURE Stat Lab 12/06/21 Completed Urine Triage Profile Stat Lab 12/06/21 14:52 Completed Medication Summary Discontinued Medications Generic Name Dose Route Start Last Admin Trade Name Taiwo PRN Reason Stop Dose Admin Sodium Chloride 1,000 mls @ 999 mls/hr 12/06/21 14:40 12/06/21 17:19 Sodium Chloride 0.9% 1000 Ml IV 12/06/21 15:40 Infused .Q1H1M STA Infusion Sodium Chloride Confirm 12/06/21 14:46 Sodium Chloride 0.9% 1000 Ml Administered 12/06/21 14:47 Dose 1,000 mls @ ud .ROUTE .STK-MED ONE Lab/Rad Data: Laboratory Result Diagrams 12/06/21 13:45 12/06/21 13:45 Laboratory Results 12/06/21 12/06/21 12/06/21 Range/Units Unknown 15:57 14:52 WBC (4.0-10.5) K/mm3 RBC (4.1-5.6) M/mm3 Hgb (12.5-18.0) gm/dl Hct (42-50) % MCV (78-100) fl MCH (26-32) pg MCHC (32-36) g/dl RDW (11.5-14.0) % Plt Count (150-450) K/mm3 MPV (7.5-11.0) fl Gran % (36.0-66.0) % Eos # (Auto) (0-0.5) Absolute Lymphs (auto) (1.0-4.6) Absolute Monos (auto) (0.0-1.3) Lymphocytes % (24.0-44.0) % Monocytes % (0.0-12.0) % Eosinophils % (0.00-5.0) % Basophils % (0.0-0.4) % Absolute Granulocytes (1.4-6.9) Basophils # (0-0.4) Sodium (137-145) mmol/L Potassium (3.5-5.1) mmol/L Chloride (98-107) mmol/L Carbon Dioxide (22-30) mmol/L Anion Gap (5-15) MEQ/L BUN (9-20) mg/dL Creatinine (0.66-1.25) mg/dL Estimated GFR ML/MIN Glucose (74-106) mg/dL Calcium (8.4-10.2) mg/dL Magnesium 2.2 (1.6-2.3) mg/dL Troponin I (0.000-0.034) ng/mL NT-Pro-B Natriuret Pep 288 (0-900) pg/mL Urinalys Dipstick Clnc MAIN LAB Urine Color YELLOW (YELLOW) Urine Appearance CLEAR (CLEAR) Urine pH 5.5 (5-6) Ur Specific [place] 1.020 (1.005-1.025) POC Urine Protein Conf NEGATIVE (Negative) Urine Ketones NEGATIVE (NEGATIVE) Urine Nitrite NEGATIVE (NEGATIVE) Urine Bilirubin NEGATIVE (NEGATIVE) Urine Urobilinogen 0.2 (0-1) mg/dL Urine Leukocytes NEGATIVE (NEGATIVE) Urine WBC (Auto) NONE (0-5) /HPF Urine RBC (Auto) NONE (0-2) /HPF U Epithel Cells (Auto) NONE (FEW) /HPF Urine Bacteria (Auto) NONE (NEGATIVE) /HPF Urine RBC TRACE-INTACT (0-5) Crispin/ul Urine Mucus (Auto) SLIGHT (NEGATIVE) /HPF Ur Culture Indicated? NO Urine Glucose NEGATIVE (NEGATIVE) mg/dL Urine Opiates Level NEGATIVE (NEGATIVE) Ur Methadone NEGATIVE (NEGATIVE) Urine Barbiturates NEGATIVE (NEGATIVE) Ur Phencyclidine (PCP) NEGATIVE (NEGATIVE) Urine Amphetamine NEGATIVE (NEGATIVE) U Benzodiazepine Level NEGATIVE (NEGATIVE) Urine Cocaine NEGATIVE (NEGATIVE) Urine Marijuana (THC) NEGATIVE (NEGATIVE) 12/06/21 12/06/21 12/06/21 Range/Units 13:45 13:45 13:45 WBC 5.3 (4.0-10.5) K/mm3 RBC 4.77 (4.1-5.6) M/mm3 Hgb 15.9 (12.5-18.0) gm/dl Hct 47.0 (42-50) % MCV 98.5 (78-100) fl MCH 33.3 H (26-32) pg MCHC 33.8 (32-36) g/dl RDW 12.8 (11.5-14.0) % Plt Count 233 (150-450) K/mm3 MPV 10.9 (7.5-11.0) fl Gran % 62.6 (36.0-66.0) % Eos # (Auto) 0.19 (0-0.5) Absolute Lymphs (auto) 0.98 L (1.0-4.6) Absolute Monos (auto) 0.76 (0.0-1.3) Lymphocytes % 18.6 L (24.0-44.0) % Monocytes % 14.4 H (0.0-12.0) % Eosinophils % 3.6 (0.00-5.0) % Basophils % 0.8 (0.0-0.4) % Absolute Granulocytes 3.29 (1.4-6.9) Basophils # 0.04 (0-0.4) Sodium 137 (137-145) mmol/L Potassium 3.9 D (3.5-5.1) mmol/L Chloride 101 (98-107) mmol/L Carbon Dioxide 24 (22-30) mmol/L Anion Gap 15.8 H (5-15) MEQ/L BUN 6 L (9-20) mg/dL Creatinine 0.70 (0.66-1.25) mg/dL Estimated GFR > 60.0 ML/MIN Glucose 98 (74-106) mg/dL Calcium 8.8 (8.4-10.2) mg/dL Magnesium (1.6-2.3) mg/dL Troponin I < 0.012 (0.000-0.034) ng/mL NT-Pro-B Natriuret Pep (0-900) pg/mL Urinalys Dipstick Clnc Urine Color (YELLOW) Urine Appearance (CLEAR) Urine pH (5-6) Ur Specific [place] (1.005-1.025) POC Urine Protein Conf (Negative) Urine Ketones (NEGATIVE) Urine Nitrite (NEGATIVE) Urine Bilirubin (NEGATIVE) Urine Urobilinogen (0-1) mg/dL Urine Leukocytes (NEGATIVE) Urine WBC (Auto) (0-5) /HPF Urine RBC (Auto) (0-2) /HPF U Epithel Cells (Auto) (FEW) /HPF Urine Bacteria (Auto) (NEGATIVE) /HPF Urine RBC (0-5) Crispin/ul Urine Mucus (Auto) (NEGATIVE) /HPF Ur Culture Indicated? Urine Glucose (NEGATIVE) mg/dL Urine Opiates Level (NEGATIVE) Ur Methadone (NEGATIVE) Urine Barbiturates (NEGATIVE) Ur Phencyclidine (PCP) (NEGATIVE) Urine Amphetamine (NEGATIVE) U Benzodiazepine Level (NEGATIVE) Urine Cocaine (NEGATIVE) Urine Marijuana (THC) (NEGATIVE) - Progress Progress: improved, re-examined Progress Note: 12/06/21 17:00 He is given fluid bolus, nonfocal neuro exam, EKG did not show any acute ST elevation/arrhythmia. Borderline QT prolongation. Chest x-ray negative reviewed by me, official report is pending. Grossly unremarkable lab work including troponin. Patient remained asymptomatic throughout stay in the ER. Do not think needs CT head, patient has not recently been on Holter monitor showing nonsustained VT/PACs. I believe he has intermittent nonsustained VT and need evaluation by cardiology. I have discussed with Dr. Nugent, reviewed history, work-up and does not have telemetry cardiology services over the weekend and recommended transfer to facility with cardiology services if needed. I have discussed with patient and he does not want to go to [place] absolutely. He does have appointment with Dr. Hoang next week. He is advised to call his appointment setter early next week to be seen quicker. Discussed with patient about worsening of symptoms or return of symptoms needing return to ER which he seems understanding. Stable for discharge. Discussed with Dr.: Krista Counseled pt/family regarding: lab results, diagnosis, need for follow-up, rad results - Departure Departure Disposition: Home Clinical Impression: Dizziness Condition: Stable Critical Care Time: No Referrals: LÓPEZ NEGRETE MD [Primary Care Provider] - Follow up/PCP as directed (2 days for re evaluation) JONI HOANG [ACTIVE STAFF] - Follow up/PCP as directed (Call in 2 days for reevaluation) Instructions: Ventricular Tachycardia, Arrhythmias (DC), Vertigo (a Type of Dizziness) (DC) Additional Instructions: Follow-up with primary care and cardiology for reevaluation. Return to ER if again having worsening of dizziness, lightheadedness, chest pain, palpitations/shortness of breath etc. Prescriptions: Magnesium Oxide 400 mg [Mag-Ox 400] 400 mg PO BID #60 tablet
[2021-12-06 16:08] LABS: Dipstick done @ ? MAIN LAB
[2021-12-06 16:26] LABS: Urine Cultured Indicated? NO
[2021-12-06 16:33] LABS: MAGNESIUM 2.2 mg/dL (1.6-2.3)
--- NOTE | 2021-12-06 20:39 | XRAY ---
Indication: Dizziness and weakness. Comparison: November 22, 2021. Portable chest unchanged again inflated and clear. Heart and mediastinal structures within normal limits. No new/acute findings.
== END 2021-12-06 17:46 | disposition home or self-care (01) ==
LOC: ED 13:39
DX: R42 Dizziness and giddiness (principal); R53.1 Weakness; I10 Essential (primary) hypertension; E78.5 Hyperlipidemia, unspecified; J44.9 Chronic obstructive pulmonary disease, unspecified; Z79.899 Other long term (current) drug therapy
CPT/HCPCS: 36000; 36415; 71045; 80048; 80307; 81015; 83735; 83880; 84484; 85025; 93005; 93041; 96360; 99284

== ENCOUNTER 2023-01-15 05:58 | Day surgery (SDC) | payer MEDICARE, OTHER ==
[2023-01-15] MEDS ORDERED: Lactated Ringers 1,000 ML IV ONE (06:55)
[2023-01-15] MEDS: Lactated Ringers 1,000 ML IV SCH (06:58)
[2023-01-15] MEDS ORDERED: Xylocaine-Mpf 2% 5 Ml Vial ONE (07:52)
[2023-01-15] MEDS ORDERED: DIPRIVAN 200 MG/20 ML IV ONE ×2 (07:52→08:10)
[2023-01-15] MEDS ORDERED: ATROPINE SULFATE 1MG ONE (08:10)
[2023-01-15 08:48] VITALS: O2SAT 96
--- NOTE | 2023-01-15 09:03 | OP ---
SURGERY DATE/TIME: 01/15/2023 0753 PREOPERATIVE DIAGNOSES: 1) Dysphagia. 2) Screening colon exam. POSTOPERATIVE DIAGNOSES: 1) Mild gastritis. 2) Severe sigmoid diverticulosis. PROCEDURES: 1) EGD with cold forceps biopsy. 2) Colonoscopy. SURGEON: Dr. Ryan. ANESTHESIA: MAC. Medications given by anesthesia department. HISTORY: The patient is a 72-year-old white male presenting now for endoscopic examination. The patient reports he has been having trouble with swallowing at times, pills get stuck in the upper portion of his esophagus. He has not been losing any weight. The patient reports the colon exam is for screening purposes. The patient is felt the need to have endoscopic evaluation. He was appraised of the risks of the procedure including the risk of perforation, phlebitis, untoward reaction to medication, bleeding and missed lesions. The patient verbalized his understanding and desired to have the procedure performed. DESCRIPTION OF PROCEDURE: The patient was given the medications by the anesthesia department. He had continuous pulse oximetry, ECG monitoring and intermittent blood pressure monitoring during the examination. He was placed in the left lateral decubitus position. A bite block was placed and the flexible Olympus gastroscope was used to intubate the oropharynx. A view of the larynx obtained and was normal. The scope was easily introduced in the esophagus which appeared to be normal throughout its length. The stomach was entered where normal gastric rugal folds were seen and these distended nicely with insufflation of air. The scope was passed along the greater curvature of the stomach to the antrum which appeared to be mildly erythematous. The pylorus encountered and intubated. The duodenum inspected and found to be normal. The scope is withdrawn towards the stomach. A retroflex view was obtained of the lesser curvature, fundus and cardia regions of the stomach and these appeared to be essentially normal. The scope was then redirected towards the gastric antrum and biopsies were obtained to rule out the presence of Helicobacter pylori-type organisms. The scope was then removed from the patient. Next, a digital rectal examination was performed and revealed normal anal sphincter tone, no masses and a normal prostate. The flexible Olympus pediatric colonoscope was used to intubate the rectum. A view of the colon was developed sequentially to the cecum. Upon insertion and withdrawal, including a retroflex view in the rectum was noted what was felt to be severe sigmoid diverticulosis. No other mucosal lesions were encountered. The scope was removed from the patient who tolerated the procedure well and was sent back to OP recovery in good condition. The prep was noted to be good.
[2023-01-15 09:06] VITALS: BP 160/95; PULSE 52
== END 2023-01-15 09:13 | disposition home or self-care (01) ==
LOC: SDC 05:58
PROVIDERS: ATTEND Family Medicine
DX: Z12.11 Encounter for screening for malignant neoplasm of colon (principal); R13.10 Dysphagia, unspecified; K29.70 Gastritis, unspecified, without bleeding; K57.30 Diverticulosis of large intestine without perforation or abscess without bleeding
CPT/HCPCS: 00813; 43239; 99100; G0121; J0461; J2704